=== PATIENT | male | born 1950 | race American Indian/Alaskan Native ===

== ENCOUNTER 2017-10-22 06:38 | Day surgery (SDC) | payer OTHER, MEDICAID ==
[~2017-10-22 06:38] MED LIST: Dextrose 5%-0.45% NaCl 1,000 ML IV SCH; Midazolam 1 MG/ML 2 ML SDV ONE; Sodium Chloride 0.9% 10 ML Syringe FLUSH PRN; fentaNYL 100 MCG/2 ML SDV ONE
[2017-10-22] MEDS ORDERED: fentaNYL 100 MCG/2 ML SDV IV ONE ×3 (06:39→07:19)
[2017-10-22] MEDS ORDERED: Midazolam 1 MG/ML 2 ML SDV IV ONE ×3 (06:39→07:21)
--- NOTE | 2017-10-22 10:25 | OR ---
DATE: 10/22/2017 PROCEDURE: Esophagoscopy, NBI, multiple pinch biopsies, and brush biopsy for cytology. INSTRUMENT USED: GIF-Q180 Olympus video panendoscope. PREMEDICATIONS: No oral topical anesthesia used. Fentanyl 100 mcg intravenous, Versed 1.5 mg intravenous. The procedure was done under pulse oximetry, BP recording, and pencil inspector. INDICATION: The patient with progressive dysphagia, iron-deficiency anemia, as well as weight loss. Esophagogastroduodenoscopy has been done for evidence of any esophageal stricture, malignancy also under consideration, esophageal dilatations if feasible. Endoscopic hemostasis therapy if needed. DESCRIPTION OF PROCEDURE: The scope was passed with ease. There was a tight stricture noted in the upper esophagus preventing further advancement of the instrument. Significant scar tissue was noted along with some prominent folds. NBI views were obtained, photographs were taken, numerous pinch biopsies were obtained and sent for histopathology. [place] biopsy were also obtained and sent for cytology. No esophageal ulcers identified. No esophageal varices. There was some amount of retained food material around the area. No bleeding was noted from any of the visualized areas at the completion of examination. IMPRESSION: Upper esophageal stricture. The patient tolerated the procedure well. [facility] /[id number]
--- NOTE | 2017-10-22 10:58 | LETTER ---
10/22/2017 STEPHANY Troy [facility] [address] [place] [id number] RE: [place] BARTH : 1950 Dear Ms. Horton: Mr. [place] Barth had esophagoscopy done today and he tolerated the procedure well. I herewith send a copy of the endoscopy note and photographs for your review. Thank you, Sincerely, MOD /[id number]
== END 2017-10-22 09:37 | disposition home or self-care (01) ==
LOC: DL.ENDO 06:38
PROVIDERS: ATTEND Internal Medicine Gastroenterology
DX: K20.9 Esophagitis, unspecified (principal); D50.9 Iron deficiency anemia, unspecified; I10 Essential (primary) hypertension; R63.4 Abnormal weight loss; F17.210 Nicotine dependence, cigarettes, uncomplicated; F10.20 Alcohol dependence, uncomplicated
CPT/HCPCS: 43239; J2250; J3010; J7042; 88104; 88305; 88312

== ENCOUNTER 2018-01-01 15:36 | Observation (INO) | payer OTHER, MEDICAID ==
[2018-01-01] MEDS ORDERED: Sodium Chloride 0.9% 10 ML Syringe FLUSH PRN (16:26)
--- NOTE | 2018-01-01 16:33 | EDM.PDOC ---
ED HPI GENERAL MEDICAL PROBLEM - General Chief Complaint: Gastrointestinal Problem Stated Complaint: IN BY AMBULANCE Time Seen by Provider: 01/01/18 16:15 Source of Information: Reports: Patient, EMS, EMS Notes Reviewed, Family, RN, RN Notes Reviewed History Limitations: Reports: No Limitations - History of Present Illness INITIAL COMMENTS - FREE TEXT/NARRATIVE: Pt presents to the ER per [facility] with c/o black stools. He states that he has a narrowed esophagus. He has recently had an EGD, and was told that he had a yeast infection in his throat. He just recently finished medications prescribed to him for that. He states he has had diarrhea for quite some time. He has been unable to eat much for solid food for quite some time. He began drinking ensure , but he states the ensure made the diarrhea worse, so he quit. He states he drinks 12 beers per day. He states 5-6 BM per day. Family in the room states he used to eat scrambled eggs frequently, but has been unable to eat that as well. Patient states a history of cirrhosis, HTN, and anemia. Patient denies N/V, chest pains, fever. He states he has a sore throat, chills, and SOB often. Onset: Gradual - Related Data Allergies Allergy/AdvReac Type Severity Reaction Status Date / Time No Known Allergies Allergy Verified 01/01/18 15:44 Home Meds: Home Meds . [No Known Home Meds] 10/21/17 [History] Past Medical History HEENT History: Reports: Impaired Vision Cardiovascular History: Reports: None Respiratory History: Reports: None Gastrointestinal History: Reports: Colon Polyp Genitourinary History: Reports: None Musculoskeletal History: Reports: None Neurological History: Reports: None Psychiatric History: Reports: Addiction Endocrine/Metabolic History: Reports: None Hematologic History: Reports: None Immunologic History: Reports: None Oncologic (Cancer) History: Reports: None Dermatologic History: Reports: None - Infectious Disease History Infectious Disease History: Reports: Measles - Past Surgical History Head Surgeries/Procedures: Reports: None HEENT Surgical History: Reports: None Cardiovascular Surgical History: Reports: None GI Surgical History: Reports: Colonoscopy, EGD Musculoskeletal Surgical History: Reports: None Social & Family History - Family History Family Medical History: Noncontributory - Tobacco Use Smoking Status *Q: Current Every Day Smoker Years of Tobacco use: 50 Packs/Tins Daily: 1 Second Hand Smoke Exposure: No - Caffeine Use Caffeine Use: Reports: None Caffeine Use Comment: 3 cups daily - Alcohol Use Days Per Week of Alcohol Use: 7 Number of Drinks Per Day: 12 Total Drinks Per Week: 84 - Recreational Drug Use Recreational Drug Use: No ED ROS GENERAL - Review of Systems Review Of Systems: ROS reveals no pertinent complaints other than HPI. ED EXAM, GI/ABD - Physical Exam Exam: See Below Exam Limited By: No Limitations General Appearance: Alert, Thin, Cachetic Eyes: Bilateral: Normal Appearance, EOMI Ears: Normal External Exam, Hearing Grossly Normal Nose: Normal Inspection Throat/Mouth: Normal Inspection, Normal Voice, No Airway Compromise Head: Atraumatic, Normocephalic Neck: Normal Inspection, Limited Range of Motion Respiratory/Chest: No Respiratory Distress, No Accessory Muscle Use, Chest Non- Tender, Decreased Breath Sounds Cardiovascular: Normal Peripheral Pulses, Regular Rate, Rhythm, No Edema, No Gallop, No JVD, No Murmur, No Rub GI/Abdominal Exam: No Organomegaly, No Distention, Guarding, Tender, Abnormal Bowel Sounds (hypoactive) (Male) Exam: Deferred Rectal (Males) Exam: Heme + Stool, Other (Rectal excoriation) Back Exam: Normal Inspection, Decreased Range of Motion Extremities: Normal Inspection, Normal Range of Motion, Non-Tender, No Pedal Edema, Normal Capillary Refill Neurological: Alert, Oriented, CN II-XII Intact, Normal Cognition, Normal Reflexes, No Motor/Sensory Deficits, Abnormal Gait (weak) Psychiatric: Normal Affect, Normal Mood Skin Exam: Warm, Dry, Intact, Normal Color, No Rash Lymphatic: No Adenopathy EKG INTERPRETATION EKG Date: 01/01/18 Time: 16:34 Rhythm: NSR Rate (Beats/Min): 80 (PAC's) [place]: Normal P-Wave: Present QRS: Normal ST-T: Normal QT: Normal Comparison: NA - No Prior EKG Course - Vital Signs Last Recorded V/S: Last Vital Signs Temp 98.4 F 01/01/18 15:45 Pulse 95 01/01/18 15:45 Resp 18 01/01/18 15:45 BP 159/82 H 01/01/18 15:45 Pulse Ox - Orders/Labs/Meds Orders: Active Orders 24 hr Category Date Time Status EKG Documentation Completion [RC] STAT Care 01/01/18 16:26 Active Peripheral IV Care [RC] . DIRECTED Care 01/01/18 16:27 Active C DIFFICILE TOXIN BY PCR [MREF] Stat Lab 01/01/18 16:26 Ordered DRUG SCREEN URINE BIORAD [URCHEM] Stat Lab 01/01/18 16:05 Ordered UA W/MICROSCOPIC [URIN] Stat Lab 01/01/18 16:05 Ordered Sodium Chloride 0.9% [Normal Saline] 1,000 ml Med 01/01/18 17:55 Active IV .BOLUS Sodium Chloride 0.9% [Saline Flush] Med 01/01/18 16:26 Active 10 ml FLUSH ASDIRECTED PRN Peripheral IV Insertion Adult [OM.PC] Stat Oth 01/01/18 16:26 Ordered Medication Orders Sodium Chloride (Normal Saline) 1,000 mls @ 200 mls/hr IV .BOLUS ONE Stop: 01/01/18 22:54 Last Admin: 01/01/18 18:08 Dose: 200 mls/hr Sodium Chloride (Saline Flush) 10 ml FLUSH ASDIRECTED PRN PRN Reason: Keep Vein Open Last Admin: 01/01/18 17:48 Dose: 10 ml Labs: Laboratory Tests 01/01/18 01/01/18 01/01/18 Range/Units 15:43 15:43 15:43 WBC 7.6 (5.0-10.0) 10^3/uL RBC 5.02 (4.6-6.2) 10^6/uL Hgb 10.9 L (14.0-18.0) g/dL Hct 33.7 L (40.0-54.0) % MCV 67.1 L (80-100) fL MCH 21.7 L (27.0-34.0) pg MCHC 32.3 L (33.0-35.0) g/dL Plt Count 193 (150-450) 10^3/uL Neut % (Auto) 73.0 (42.2-75.2) % Lymph % (Auto) 14.7 L (20.5-50.1) % [place] % (Auto) 11.5 H (2-8) % Eos % (Auto) 0.3 L (1.0-3.0) % Baso % (Auto) 0.5 (0.0-1.0) % PT 10.3 (9.0-12.0) SEC INR 1.0 (0.9-1.2) Sodium 126 L (135-145) mmol/L Potassium 3.7 (3.6-5.0) mmol/L Chloride 94 L (101-111) mmol/L Carbon Dioxide 21.0 (21.0-31.0) mmol/L Anion Gap 14.7 BUN 6 L (7-18) mg/dL Creatinine 0.7 (0.6-1.3) mg/dL Est Cr Clr Drug Dosing 71.28 mL/min Estimated GFR (MDRD) > 60 BUN/Creatinine Ratio 8.57 Glucose 116 H (74-105) mg/dL Calcium 8.7 (8.4-10.2) mg/dl Magnesium 1.9 (1.8-2.5) mg/dL Total Bilirubin 0.6 (0.2-1.0) mg/dL AST 56 H (10-42) IU/L ALT 31 (10-60) IU/L Alkaline Phosphatase 105 (42-121) IU/L Total Protein 6.9 (6.7-8.2) g/dl Albumin 3.1 L (3.2-5.5) g/dl Globulin 3.8 Albumin/Globulin Ratio 0.82 Amylase 30 (28-100) U/L Lipase 44 (22-51) U/L Urine Color (YELLOW) Urine Appearance (CLEAR) Urine pH (5.0-9.0) Ur Specific [place] (1.005-1.030) Urine Protein (NEGATIVE) Urine Glucose (UA) (NEGATIVE) Urine Ketones (NEGATIVE) Urine Occult Blood (NEGATIVE) Urine Nitrite (NEGATIVE) Urine Bilirubin (NEGATIVE) Urine Urobilinogen (0.2-1.0) mg/dL Ur Leukocyte Esterase (NEGATIVE) Urine RBC /HPF Urine WBC (0-5/HPF) /HPF Ur Epithelial Cells /HPF Urine Bacteria (0-FEW/HPF) /HPF Urine Mucus /LPF Urine Opiates Screen (NEGATIVE) Ur Oxycodone Screen (NEGATIVE) Urine Methadone Screen (NEGATIVE) Ur Barbiturates Screen (NEGATIVE) U Tricyclic Antidepress (NEGATIVE) Ur Phencyclidine Scrn (NEGATIVE) Ur Amphetamine Screen (NEGATIVE) U Methamphetamines Scrn (NEGATIVE) Urine MDMA Screen (NEGATIVE) U Benzodiazepines Scrn (NEGATIVE) Urine Cocaine Screen (NEGATIVE) U Marijuana (THC) Screen (NEGATIVE) Ethyl Alcohol 121 mg/dL 01/01/18 01/01/18 Range/Units 16:05 16:05 WBC (5.0-10.0) 10^3/uL RBC (4.6-6.2) 10^6/uL Hgb (14.0-18.0) g/dL Hct (40.0-54.0) % MCV (80-100) fL MCH (27.0-34.0) pg MCHC (33.0-35.0) g/dL Plt Count (150-450) 10^3/uL Neut % (Auto) (42.2-75.2) % Lymph % (Auto) (20.5-50.1) % [place] % (Auto) (2-8) % Eos % (Auto) (1.0-3.0) % Baso % (Auto) (0.0-1.0) % PT (9.0-12.0) SEC INR (0.9-1.2) Sodium (135-145) mmol/L Potassium (3.6-5.0) mmol/L Chloride (101-111) mmol/L Carbon Dioxide (21.0-31.0) mmol/L Anion Gap BUN (7-18) mg/dL Creatinine (0.6-1.3) mg/dL Est Cr Clr Drug Dosing mL/min Estimated GFR (MDRD) BUN/Creatinine Ratio Glucose (74-105) mg/dL Calcium (8.4-10.2) mg/dl Magnesium (1.8-2.5) mg/dL Total Bilirubin (0.2-1.0) mg/dL AST (10-42) IU/L ALT (10-60) IU/L Alkaline Phosphatase (42-121) IU/L Total Protein (6.7-8.2) g/dl Albumin (3.2-5.5) g/dl Globulin Albumin/Globulin Ratio Amylase (28-100) U/L Lipase (22-51) U/L Urine Color Yellow (YELLOW) Urine Appearance Slightly cloudy (CLEAR) Urine pH 5.5 (5.0-9.0) Ur Specific [place] 1.015 (1.005-1.030) Urine Protein Negative (NEGATIVE) Urine Glucose (UA) Negative (NEGATIVE) Urine Ketones Trace H (NEGATIVE) Urine Occult Blood Small H (NEGATIVE) Urine Nitrite Negative (NEGATIVE) Urine Bilirubin Negative (NEGATIVE) Urine Urobilinogen 0.2 (0.2-1.0) mg/dL Ur Leukocyte Esterase Trace H (NEGATIVE) Urine RBC 5-10 H /HPF Urine WBC 5-10 H (0-5/HPF) /HPF Ur Epithelial Cells Few /HPF Urine Bacteria Rare (0-FEW/HPF) /HPF Urine Mucus Rare /LPF Urine Opiates Screen Negative (NEGATIVE) Ur Oxycodone Screen Negative (NEGATIVE) Urine Methadone Screen Negative (NEGATIVE) Ur Barbiturates Screen Negative (NEGATIVE) U Tricyclic Antidepress Negative (NEGATIVE) Ur Phencyclidine Scrn Negative (NEGATIVE) Ur Amphetamine Screen Negative (NEGATIVE) U Methamphetamines Scrn Negative (NEGATIVE) Urine MDMA Screen Negative (NEGATIVE) U Benzodiazepines Scrn Negative (NEGATIVE) Urine Cocaine Screen Negative (NEGATIVE) U Marijuana (THC) Screen Negative (NEGATIVE) Ethyl Alcohol mg/dL Meds: Medications Generic Name Dose Route Start Last Admin Trade Name Freq PRN Reason Stop Dose Admin Sodium Chloride 1,000 mls @ 200 mls/hr 01/01/18 17:55 01/01/18 18:08 Normal Saline IV 01/01/18 22:54 200 mls/hr .BOLUS ONE Administration Sodium Chloride 10 ml 01/01/18 16:26 01/01/18 17:48 Saline Flush FLUSH 10 ml ASDIRECTED PRN Administration Keep Vein Open Departure - Departure Time of Disposition: 18:46 Disposition: Refer to Observation Condition: Poor Clinical Impression: Diarrhea, Alcoholism, Esophageal stricture, Guaiac positive stools - Discharge Information Forms: ED Department Discharge - My Orders Last 24 Hours: My Active Orders 01/01/18 16:05 DRUG SCREEN URINE BIORAD [URCHEM] Stat UA W/MICROSCOPIC [URIN] Stat 01/01/18 16:26 EKG Documentation Completion [RC] STAT C DIFFICILE TOXIN BY PCR [MREF] Stat Sodium Chloride 0.9% [Saline Flush] 10 ml FLUSH ASDIRECTED PRN Peripheral IV Insertion Adult [OM.PC] Stat 01/01/18 16:27 Peripheral IV Care [RC] . DIRECTED 01/01/18 17:55 Sodium Chloride 0.9% [Normal Saline] 1,000 ml IV .BOLUS - Assessment/Plan Last 24 Hours: My Active Orders 01/01/18 16:05 DRUG SCREEN URINE BIORAD [URCHEM] Stat UA W/MICROSCOPIC [URIN] Stat 01/01/18 16:26 EKG Documentation Completion [RC] STAT C DIFFICILE TOXIN BY PCR [MREF] Stat Sodium Chloride 0.9% [Saline Flush] 10 ml FLUSH ASDIRECTED PRN Peripheral IV Insertion Adult [OM.PC] Stat 01/01/18 16:27 Peripheral IV Care [RC] . DIRECTED 01/01/18 17:55 Sodium Chloride 0.9% [Normal Saline] 1,000 ml IV .BOLUS
[2018-01-01 16:50] LABS: CHLORIDE,CL 94 mmol/L (101-111); SODIUM,NA 126 mmol/L (135-145)
[2018-01-01] MEDS ORDERED: Sodium Chloride 0.9% 1,000 ML IV ONE (17:55)
--- NOTE | 2018-01-01 18:58 | PCM.HP ---
H&P History of Present Illness - General Date of Service: 01/01/18 Source of Information: Patient, Family History Limitations: Reports: No Limitations - History of Present Illness Initial Comments - Free Text/Narative: 67-year-old male with the past medical history of cirrhosis, esophageal stricture, fungal esophagitis, chronic diarrhea, alcoholism, impaired vision, colon polyps, presented to the emergency room by his daughter for having multiple issues. Daughter said he was supposed to see his primary care provider today for follow-up but he did not show up and patient has been missing his appointments recently so she brought him to the emergency room. Patient stated that he has been having sore throat from the yeast infection but complete his anti-fungus treatment. He had recent EGD showing upper esophageal stricture. He admitted having diarrhea for months. He said recently he has been black. He denies recent use of antibiotics. He admitted to having occasional shortness of breath which could be from anxiety. He still drinks about 12 pack beer a day. Patient has not been having good food intake days. His last alcohol consumption was at 3 PM today. Patient denies fever, chills, nausea, vomiting, headache, change in vision, chest pain, cough, abdominal pain, urinary symptoms, lower extremities edema, unilateral weakness/numbness/tingling, any other symptoms or concern. Hemoccult in the emergency room was positive. Laboratory data reported WBC 7.6. Hemoglobin 10.9. Platelet 193. INR 1.0. Sodium 126. Creatinine 0.7. AST 56. ALP 31. Alkaline phosphatase because 105. Albumin 3.1. Urine drug screen is negative. Alcohol level 121. ER provider was planning to transfer patient to [facility] in [place]. They don't have data available today and they will accept him in the morning. Patient wants to go to [facility] where he had his GI specialist there and declined going somewhere else. - Related Data Allergies/Adverse Reactions: Allergies Allergy/AdvReac Type Severity Reaction Status Date / Time No Known Allergies Allergy Verified 01/01/18 15:44 Home Medications: Home Meds . [No Known Home Meds] 10/21/17 [History] Past Medical History HEENT History: Reports: Impaired Vision Cardiovascular History: Reports: None Respiratory History: Reports: None Gastrointestinal History: Reports: Colon Polyp Genitourinary History: Reports: None Musculoskeletal History: Reports: None Neurological History: Reports: None Psychiatric History: Reports: Addiction Endocrine/Metabolic History: Reports: None Hematologic History: Reports: None Immunologic History: Reports: None Oncologic (Cancer) History: Reports: None Dermatologic History: Reports: None - Infectious Disease History Infectious Disease History: Reports: Measles - Past Surgical History Head Surgeries/Procedures: Reports: None HEENT Surgical History: Reports: None Cardiovascular Surgical History: Reports: None GI Surgical History: Reports: Colonoscopy, EGD Musculoskeletal Surgical History: Reports: None Social & Family History - Family History Family Medical History: Noncontributory - Tobacco Use Smoking Status *Q: Current Every Day Smoker Years of Tobacco use: 50 Packs/Tins Daily: 1 Second Hand Smoke Exposure: No - Caffeine Use Caffeine Use: Reports: None Caffeine Use Comment: 3 cups daily - Alcohol Use Days Per Week of Alcohol Use: 7 Number of Drinks Per Day: 12 Total Drinks Per Week: 84 - Recreational Drug Use Recreational Drug Use: No H&P Review of Systems - Review of Systems: Review Of Systems: ROS reveals no pertinent complaints other than HPI. Exam - Exam Exam: See Below - Vital Signs Vital Signs: Last Vital Signs Temp 36.9 C 01/01/18 15:45 Pulse 95 01/01/18 15:45 Resp 18 01/01/18 15:45 BP 159/82 H 01/01/18 15:45 Pulse Ox Weight: 49.895 kg - Exam General: Alert, Oriented, Cooperative, Other (He looks frail and chronically ill ). No: Moderate Distress, Severe Distress, Sedated, Lethargic, Obtunded HEENT: Conjunctiva Clear, EACs Clear, EOMI, Hearing Intact, Mucosa Moist & [place] , Nares Patent, Normal Nasal Septum, Posterior Pharynx Clear, Pupils Equal, Pupils Reactive, Other (Poor oral hygiene and multiple dental caries) Neck: Supple, Trachea Midline, +2 Carotid Pulse wo Bruit Lungs: Clear to Auscultation, Normal Respiratory Effort Cardiovascular: Regular Rate, Regular Rhythm GI/Abdominal Exam: Normal Bowel Sounds, Soft, Non-Tender, No Organomegaly, No Distention, No Abnormal Bruit, No Mass (Male) Exam: Deferred Rectal (Males) Exam: Deferred Back Exam: Normal Inspection, Full Range of Motion. No: CVA Tenderness (L), CVA Tenderness (R) Extremities: Normal Inspection, Normal Range of Motion, Non-Tender, No Pedal Edema, Normal Capillary Refill Skin: Warm, Dry, Intact Neurological: Cranial Nerves Intact, Strength Equal Bilateral, Normal Speech Neuro Extensive - Mental Status: Alert, Oriented x3, Normal Mood/Affect Neuro Extensive - Motor, Sensory, Reflexes: CN II-XII Intact Psychiatric: Alert, Normal Affect, Normal Mood. No: Anxious, Depressed, Agitated, Suicidal Ideation, Homicidal Ideation, Hallucinations, Withdrawal Symptoms - Patient Data Lab Results Last 24 hrs: Laboratory Results - last 24 hr 01/01/18 01/01/18 01/01/18 Range/Units 15:43 15:43 15:43 WBC 7.6 (5.0-10.0) 10^3/uL RBC 5.02 (4.6-6.2) 10^6/uL Hgb 10.9 L (14.0-18.0) g/dL Hct 33.7 L (40.0-54.0) % MCV 67.1 L (80-100) fL MCH 21.7 L (27.0-34.0) pg MCHC 32.3 L (33.0-35.0) g/dL Plt Count 193 (150-450) 10^3/uL Neut % (Auto) 73.0 (42.2-75.2) % Lymph % (Auto) 14.7 L (20.5-50.1) % Rains % (Auto) 11.5 H (2-8) % Eos % (Auto) 0.3 L (1.0-3.0) % Baso % (Auto) 0.5 (0.0-1.0) % PT 10.3 (9.0-12.0) SEC INR 1.0 (0.9-1.2) Sodium 126 L (135-145) mmol/L Potassium 3.7 (3.6-5.0) mmol/L Chloride 94 L (101-111) mmol/L Carbon Dioxide 21.0 (21.0-31.0) mmol/L Anion Gap 14.7 BUN 6 L (7-18) mg/dL Creatinine 0.7 (0.6-1.3) mg/dL Est Cr Clr Drug Dosing 71.28 mL/min Estimated GFR (MDRD) > 60 BUN/Creatinine Ratio 8.57 Glucose 116 H (74-105) mg/dL Calcium 8.7 (8.4-10.2) mg/dl Magnesium 1.9 (1.8-2.5) mg/dL Total Bilirubin 0.6 (0.2-1.0) mg/dL AST 56 H (10-42) IU/L ALT 31 (10-60) IU/L Alkaline Phosphatase 105 (42-121) IU/L Total Protein 6.9 (6.7-8.2) g/dl Albumin 3.1 L (3.2-5.5) g/dl Globulin 3.8 Albumin/Globulin Ratio 0.82 Amylase 30 (28-100) U/L Lipase 44 (22-51) U/L Urine Color (YELLOW) Urine Appearance (CLEAR) Urine pH (5.0-9.0) Ur Specific [place] (1.005-1.030) Urine Protein (NEGATIVE) Urine Glucose (UA) (NEGATIVE) Urine Ketones (NEGATIVE) Urine Occult Blood (NEGATIVE) Urine Nitrite (NEGATIVE) Urine Bilirubin (NEGATIVE) Urine Urobilinogen (0.2-1.0) mg/dL Ur Leukocyte Esterase (NEGATIVE) Urine RBC /HPF Urine WBC (0-5/HPF) /HPF Ur Epithelial Cells /HPF Urine Bacteria (0-FEW/HPF) /HPF Urine Mucus /LPF Urine Opiates Screen (NEGATIVE) Ur Oxycodone Screen (NEGATIVE) Urine Methadone Screen (NEGATIVE) Ur Barbiturates Screen (NEGATIVE) U Tricyclic Antidepress (NEGATIVE) Ur Phencyclidine Scrn (NEGATIVE) Ur Amphetamine Screen (NEGATIVE) U Methamphetamines Scrn (NEGATIVE) Urine MDMA Screen (NEGATIVE) U Benzodiazepines Scrn (NEGATIVE) Urine Cocaine Screen (NEGATIVE) U Marijuana (THC) Screen (NEGATIVE) Ethyl Alcohol 121 mg/dL 01/01/18 01/01/18 Range/Units 16:05 16:05 WBC (5.0-10.0) 10^3/uL RBC (4.6-6.2) 10^6/uL Hgb (14.0-18.0) g/dL Hct (40.0-54.0) % MCV (80-100) fL MCH (27.0-34.0) pg MCHC (33.0-35.0) g/dL Plt Count (150-450) 10^3/uL Neut % (Auto) (42.2-75.2) % Lymph % (Auto) (20.5-50.1) % Rains % (Auto) (2-8) % Eos % (Auto) (1.0-3.0) % Baso % (Auto) (0.0-1.0) % PT (9.0-12.0) SEC INR (0.9-1.2) Sodium (135-145) mmol/L Potassium (3.6-5.0) mmol/L Chloride (101-111) mmol/L Carbon Dioxide (21.0-31.0) mmol/L Anion Gap BUN (7-18) mg/dL Creatinine (0.6-1.3) mg/dL Est Cr Clr Drug Dosing mL/min Estimated GFR (MDRD) BUN/Creatinine Ratio Glucose (74-105) mg/dL Calcium (8.4-10.2) mg/dl Magnesium (1.8-2.5) mg/dL Total Bilirubin (0.2-1.0) mg/dL AST (10-42) IU/L ALT (10-60) IU/L Alkaline Phosphatase (42-121) IU/L Total Protein (6.7-8.2) g/dl Albumin (3.2-5.5) g/dl Globulin Albumin/Globulin Ratio Amylase (28-100) U/L Lipase (22-51) U/L Urine Color Yellow (YELLOW) Urine Appearance Slightly cloudy (CLEAR) Urine pH 5.5 (5.0-9.0) Ur Specific [place] 1.015 (1.005-1.030) Urine Protein Negative (NEGATIVE) Urine Glucose (UA) Negative (NEGATIVE) Urine Ketones Trace H (NEGATIVE) Urine Occult Blood Small H (NEGATIVE) Urine Nitrite Negative (NEGATIVE) Urine Bilirubin Negative (NEGATIVE) Urine Urobilinogen 0.2 (0.2-1.0) mg/dL Ur Leukocyte Esterase Trace H (NEGATIVE) Urine RBC 5-10 H /HPF Urine WBC 5-10 H (0-5/HPF) /HPF Ur Epithelial Cells Few /HPF Urine Bacteria Rare (0-FEW/HPF) /HPF Urine Mucus Rare /LPF Urine Opiates Screen Negative (NEGATIVE) Ur Oxycodone Screen Negative (NEGATIVE) Urine Methadone Screen Negative (NEGATIVE) Ur Barbiturates Screen Negative (NEGATIVE) U Tricyclic Antidepress Negative (NEGATIVE) Ur Phencyclidine Scrn Negative (NEGATIVE) Ur Amphetamine Screen Negative (NEGATIVE) U Methamphetamines Scrn Negative (NEGATIVE) Urine MDMA Screen Negative (NEGATIVE) U Benzodiazepines Scrn Negative (NEGATIVE) Urine Cocaine Screen Negative (NEGATIVE) U Marijuana (THC) Screen Negative (NEGATIVE) Ethyl Alcohol mg/dL Result Diagrams: 01/01/18 15:43 01/01/18 15:43 Gustavo Results Last 24 hrs: Microbiology 01/01/18 16:28 Stool Occult Blood (GUSTAVO) - Final Stool / Feces Problem List Initiated/Reviewed/Updated: Yes Orders Last 24hrs: Active Orders 24 hr Category Date Time Status EKG Documentation Completion [RC] STAT Care 01/01/18 16:26 Active Peripheral IV Care [RC] . DIRECTED Care 01/01/18 16:27 Active C DIFFICILE TOXIN BY PCR [MREF] Stat Lab 01/01/18 16:26 Ordered DRUG SCREEN URINE BIORAD [URCHEM] Stat Lab 01/01/18 16:05 Ordered UA W/MICROSCOPIC [URIN] Stat Lab 01/01/18 16:05 Ordered Sodium Chloride 0.9% [Normal Saline] 1,000 ml Med 01/01/18 17:55 Active IV .BOLUS Sodium Chloride 0.9% [Saline Flush] Med 01/01/18 16:26 Active 10 ml FLUSH ASDIRECTED PRN Peripheral IV Insertion Adult [OM.PC] Stat Oth 01/01/18 16:26 Ordered Medication Orders Sodium Chloride (Normal Saline) 1,000 mls @ 200 mls/hr IV .BOLUS ONE Stop: 01/01/18 22:54 Last Admin: 01/01/18 18:08 Dose: 200 mls/hr Sodium Chloride (Saline Flush) 10 ml FLUSH ASDIRECTED PRN PRN Reason: Keep Vein Open Last Admin: 01/01/18 17:48 Dose: 10 ml Assessment/Plan Comment:: 67-year-old male with the past medical history of cirrhosis, esophageal stricture, fungal esophagitis, chronic diarrhea, alcoholism, impaired vision, colon polyps, presented to the emergency room by his daughter for having multiple issues. Came with multiple complaints, poor oral fluid intake, weight loss, alcoholism, oral pain. Hemoccult in the emergency room was positive. Laboratory data reported WBC 7.6. Hemoglobin 10.9. Platelet 193. INR 1.0. Sodium 126. Creatinine 0.7. AST 56. ALP 31. Alkaline phosphatase because 105. Albumin 3.1. Urine drug screen is negative. Alcohol level 121. ER provider was planning to transfer patient to [facility] in [place]. They don't have data available today and they will accept him in the morning. Patient wants to go to [facility] where he had his GI specialist there and declined going somewhere else. I discussed case with the doctor William over the phone who kindly agreed to resume care after me living at 7 PM today and arrange for transfer tomorrow morning #GI bleed Hemoglobin is stable. Recent EGD did not report esophageal varices Gentle IV fluid infusion Protonix 40 mg IV twice a day #Diarrhea C. difficile and stool culture and ova and parasites ordered #Hyponatremia Will do gentle IV fluid infusion of normal saline #Alcoholism Patient was advised to quit using alcohol and seek counseling [facility] protocol #Cirrhosis according to patient and daughter, most like from alcoholism LFTs and INR are normal Needs GI follow-up #charge nurse was informed to obtain list of home medications SCDs for DVT prophylaxis CODE STATUS: Full code
[2018-01-01] MEDS ORDERED: LORazepam 0.5 MG Tab PO PRN (19:08)
[2018-01-01] MEDS ORDERED: Ondansetron 4 MG/2 ML SDV IVPUSH PRN (19:13)
[2018-01-01] MEDS ORDERED: Albuterol/Ipratropium 3.0-0.5 MG/3 ML Neb Soln NEB PRN (19:13)
[2018-01-01] MEDS ORDERED: Morphine 2 MG/ML Syringe IVPUSH PRN (19:13)
[2018-01-01] MEDS ORDERED: Sodium Chloride 0.9% 1,000 ML IV SCH (19:15)
[2018-01-01] MEDS: Pantoprazole 40 MG Vial IVPUSH SCH (20:03)
[2018-01-01] MEDS: Nicotine 21 MG/24 Hr Patch TRDERM SCH (21:58)
[2018-01-02 07:10] LABS: CHLORIDE,CL 102 mmol/L (101-111); SODIUM,NA 133 mmol/L (135-145)
[2018-01-02] MEDS ORDERED: Multivitamins,Therapeutic Tab PO SCH (08:00)
[2018-01-02] MEDS ORDERED: Dextrose 5%-0.9% NaCl 1,000 ML IV SCH (08:15)
[2018-01-02] MEDS: Nicotine 21 MG/24 Hr Patch TRDERM SCH (08:33)
[2018-01-02] MEDS: Pantoprazole 40 MG Vial IVPUSH SCH (08:33)
[2018-01-02] MEDS: Nystatin Susp 100,000 Unit/ML 5 ML UD Cup PO SCH ×2 (08:33→13:03)
[2018-01-02] MEDS ORDERED: Folic Acid 1 MG Tab PO SCH (09:00)
[2018-01-02] MEDS ORDERED: Remove Patch*NICOTINE PATCH TRDERM SCH (09:00)
[2018-01-02] MEDS ORDERED: Thiamine 100 MG Tab PO SCH (09:00)
--- NOTE | 2018-01-02 14:30 | PCM.DCSUM1 ---
Discharge Summary - Hospital Course Free Text/Narrative:: h/o alcohol use, liver cirrhosis presented with weight loss, inability to swallow. Dark black stool noted. HAs been drinking 12 can beers daily. admitted with GI bleed - treated with Protonix mild acute blood loss anemia - hgb drop mostly due to hydration no acute alcohol withdrawal since admission alcohol abuse - supplemented thiamine, folate, mvi dysphagia - last EGD 10/2017 - showed stricture - could not pass scope - biopsy showed candidiasis - tx. nystatin - will likely need esophageal dilatation - Discharge Data Discharge Date: 01/02/18 Discharge Disposition: DC/Tfer to Acute Hospital 02 Condition: Fair - Discharge Plan Home Medications: Home Meds Folic Acid 1 mg PO DAILY tablet 01/02/18 [Rx] LORazepam [Ativan] 0 mg PO Q4H PRN tablet 01/02/18 [Rx] Multivitamins,Therapeutic [Thera] 1 each PO WITHBREAKFAST tablet 01/02/18 [Rx] Nicotine [Habitrol] 21 mg TRDERM DAILY patch 01/02/18 [Rx] Nystatin [Mycostatin] 5 ml PO QID cup 01/02/18 [Rx] Pantoprazole [ProTONIX IV] 40 mg IVPUSH Q12H vial 01/02/18 [Rx] Thiamine [Vitamin B-1] 100 mg PO DAILY tablet 01/02/18 [Rx] - General Info Date of Service: 01/02/18 Functional Status: Reports: Pain Controlled - Review of Systems General: Denies: Fever Pulmonary: Denies: Shortness of Breath Cardiovascular: Denies: Chest Pain Gastrointestinal: Denies: Abdominal Pain - Patient Data Vitals - Most Recent: Last Vital Signs Temp 37.0 C 01/02/18 09:03 Pulse 94 01/02/18 09:03 Resp 18 01/02/18 09:03 BP 138/73 01/02/18 09:03 Pulse Ox 100 01/02/18 09:03 Weight - Most Recent: 45.983 kg I&O - Last 24 hours: Intake & Output 01/01/18 01/02/18 01/02/18 22:59 06:59 14:59 Intake Total 300 1046 Output Total 300 200 Balance 300 746 -200 Lab Results - Last 24 hrs: Laboratory Results - last 24 hr 01/01/18 01/01/18 01/01/18 Range/Units 15:43 15:43 15:43 WBC 7.6 (5.0-10.0) 10^3/uL RBC 5.02 (4.6-6.2) 10^6/uL Hgb 10.9 L (14.0-18.0) g/dL Hct 33.7 L (40.0-54.0) % MCV 67.1 L (80-100) fL MCH 21.7 L (27.0-34.0) pg MCHC 32.3 L (33.0-35.0) g/dL Plt Count 193 (150-450) 10^3/uL Neut % (Auto) 73.0 (42.2-75.2) % Lymph % (Auto) 14.7 L (20.5-50.1) % Tucker % (Auto) 11.5 H (2-8) % Eos % (Auto) 0.3 L (1.0-3.0) % Baso % (Auto) 0.5 (0.0-1.0) % PT 10.3 (9.0-12.0) SEC INR 1.0 (0.9-1.2) Sodium 126 L (135-145) mmol/L Potassium 3.7 (3.6-5.0) mmol/L Chloride 94 L (101-111) mmol/L Carbon Dioxide 21.0 (21.0-31.0) mmol/L Anion Gap 14.7 BUN 6 L (7-18) mg/dL Creatinine 0.7 (0.6-1.3) mg/dL Est Cr Clr Drug Dosing 71.28 mL/min Estimated GFR (MDRD) > 60 BUN/Creatinine Ratio 8.57 Glucose 116 H (74-105) mg/dL Calcium 8.7 (8.4-10.2) mg/dl Magnesium 1.9 (1.8-2.5) mg/dL Total Bilirubin 0.6 (0.2-1.0) mg/dL AST 56 H (10-42) IU/L ALT 31 (10-60) IU/L Alkaline Phosphatase 105 (42-121) IU/L Total Protein 6.9 (6.7-8.2) g/dl Albumin 3.1 L (3.2-5.5) g/dl Globulin 3.8 Albumin/Globulin Ratio 0.82 Amylase 30 (28-100) U/L Lipase 44 (22-51) U/L Urine Color (YELLOW) Urine Appearance (CLEAR) Urine pH (5.0-9.0) Ur Specific [place] (1.005-1.030) Urine Protein (NEGATIVE) Urine Glucose (UA) (NEGATIVE) Urine Ketones (NEGATIVE) Urine Occult Blood (NEGATIVE) Urine Nitrite (NEGATIVE) Urine Bilirubin (NEGATIVE) Urine Urobilinogen (0.2-1.0) mg/dL Ur Leukocyte Esterase (NEGATIVE) Urine RBC /HPF Urine WBC (0-5/HPF) /HPF Ur Epithelial Cells /HPF Urine Bacteria (0-FEW/HPF) /HPF Urine Mucus /LPF Urine Opiates Screen (NEGATIVE) Ur Oxycodone Screen (NEGATIVE) Urine Methadone Screen (NEGATIVE) Ur Barbiturates Screen (NEGATIVE) U Tricyclic Antidepress (NEGATIVE) Ur Phencyclidine Scrn (NEGATIVE) Ur Amphetamine Screen (NEGATIVE) U Methamphetamines Scrn (NEGATIVE) Urine MDMA Screen (NEGATIVE) U Benzodiazepines Scrn (NEGATIVE) Urine Cocaine Screen (NEGATIVE) U Marijuana (THC) Screen (NEGATIVE) Ethyl Alcohol 121 mg/dL 01/01/18 01/01/18 01/02/18 Range/Units 16:05 16:05 06:05 WBC 5.6 (5.0-10.0) 10^3/uL RBC 4.43 L (4.6-6.2) 10^6/uL Hgb 9.5 L (14.0-18.0) g/dL Hct 30.4 L (40.0-54.0) % MCV 68.6 L (80-100) fL MCH 21.4 L (27.0-34.0) pg MCHC 31.3 L (33.0-35.0) g/dL Plt Count 224 (150-450) 10^3/uL Neut % (Auto) 62.4 (42.2-75.2) % Lymph % (Auto) 19.4 L (20.5-50.1) % Tucker % (Auto) 16.9 H (2-8) % Eos % (Auto) 0.4 L (1.0-3.0) % Baso % (Auto) 0.9 (0.0-1.0) % PT (9.0-12.0) SEC INR (0.9-1.2) Sodium (135-145) mmol/L Potassium (3.6-5.0) mmol/L Chloride (101-111) mmol/L Carbon Dioxide (21.0-31.0) mmol/L Anion Gap BUN (7-18) mg/dL Creatinine (0.6-1.3) mg/dL Est Cr Clr Drug Dosing mL/min Estimated GFR (MDRD) BUN/Creatinine Ratio Glucose (74-105) mg/dL Calcium (8.4-10.2) mg/dl Magnesium (1.8-2.5) mg/dL Total Bilirubin (0.2-1.0) mg/dL AST (10-42) IU/L ALT (10-60) IU/L Alkaline Phosphatase (42-121) IU/L Total Protein (6.7-8.2) g/dl Albumin (3.2-5.5) g/dl Globulin Albumin/Globulin Ratio Amylase (28-100) U/L Lipase (22-51) U/L Urine Color Yellow (YELLOW) Urine Appearance Slightly cloudy (CLEAR) Urine pH 5.5 (5.0-9.0) Ur Specific [place] 1.015 (1.005-1.030) Urine Protein Negative (NEGATIVE) Urine Glucose (UA) Negative (NEGATIVE) Urine Ketones Trace H (NEGATIVE) Urine Occult Blood Small H (NEGATIVE) Urine Nitrite Negative (NEGATIVE) Urine Bilirubin Negative (NEGATIVE) Urine Urobilinogen 0.2 (0.2-1.0) mg/dL Ur Leukocyte Esterase Trace H (NEGATIVE) Urine RBC 5-10 H /HPF Urine WBC 5-10 H (0-5/HPF) /HPF Ur Epithelial Cells Few /HPF Urine Bacteria Rare (0-FEW/HPF) /HPF Urine Mucus Rare /LPF Urine Opiates Screen Negative (NEGATIVE) Ur Oxycodone Screen Negative (NEGATIVE) Urine Methadone Screen Negative (NEGATIVE) Ur Barbiturates Screen Negative (NEGATIVE) U Tricyclic Antidepress Negative (NEGATIVE) Ur Phencyclidine Scrn Negative (NEGATIVE) Ur Amphetamine Screen Negative (NEGATIVE) U Methamphetamines Scrn Negative (NEGATIVE) Urine MDMA Screen Negative (NEGATIVE) U Benzodiazepines Scrn Negative (NEGATIVE) Urine Cocaine Screen Negative (NEGATIVE) U Marijuana (THC) Screen Negative (NEGATIVE) Ethyl Alcohol mg/dL 01/02/18 Range/Units 06:05 WBC (5.0-10.0) 10^3/uL RBC (4.6-6.2) 10^6/uL Hgb (14.0-18.0) g/dL Hct (40.0-54.0) % MCV (80-100) fL MCH (27.0-34.0) pg MCHC (33.0-35.0) g/dL Plt Count (150-450) 10^3/uL Neut % (Auto) (42.2-75.2) % Lymph % (Auto) (20.5-50.1) % Tucker % (Auto) (2-8) % Eos % (Auto) (1.0-3.0) % Baso % (Auto) (0.0-1.0) % PT (9.0-12.0) SEC INR (0.9-1.2) Sodium 133 L (135-145) mmol/L Potassium 3.8 (3.6-5.0) mmol/L Chloride 102 (101-111) mmol/L Carbon Dioxide 22.0 (21.0-31.0) mmol/L Anion Gap 12.8 BUN 6 L (7-18) mg/dL Creatinine 0.8 (0.6-1.3) mg/dL Est Cr Clr Drug Dosing 57.48 mL/min Estimated GFR (MDRD) > 60 BUN/Creatinine Ratio 7.50 Glucose 70 L (74-105) mg/dL Calcium 8.3 L (8.4-10.2) mg/dl Magnesium (1.8-2.5) mg/dL Total Bilirubin 1.1 H (0.2-1.0) mg/dL AST 34 (10-42) IU/L ALT 23 (10-60) IU/L Alkaline Phosphatase 84 (42-121) IU/L Total Protein 5.4 L (6.7-8.2) g/dl Albumin 2.4 L (3.2-5.5) g/dl Globulin 3.0 Albumin/Globulin Ratio 0.80 Amylase (28-100) U/L Lipase (22-51) U/L Urine Color (YELLOW) Urine Appearance (CLEAR) Urine pH (5.0-9.0) Ur Specific [place] (1.005-1.030) Urine Protein (NEGATIVE) Urine Glucose (UA) (NEGATIVE) Urine Ketones (NEGATIVE) Urine Occult Blood (NEGATIVE) Urine Nitrite (NEGATIVE) Urine Bilirubin (NEGATIVE) Urine Urobilinogen (0.2-1.0) mg/dL Ur Leukocyte Esterase (NEGATIVE) Urine RBC /HPF Urine WBC (0-5/HPF) /HPF Ur Epithelial Cells /HPF Urine Bacteria (0-FEW/HPF) /HPF Urine Mucus /LPF Urine Opiates Screen (NEGATIVE) Ur Oxycodone Screen (NEGATIVE) Urine Methadone Screen (NEGATIVE) Ur Barbiturates Screen (NEGATIVE) U Tricyclic Antidepress (NEGATIVE) Ur Phencyclidine Scrn (NEGATIVE) Ur Amphetamine Screen (NEGATIVE) U Methamphetamines Scrn (NEGATIVE) Urine MDMA Screen (NEGATIVE) U Benzodiazepines Scrn (NEGATIVE) Urine Cocaine Screen (NEGATIVE) U Marijuana (THC) Screen (NEGATIVE) Ethyl Alcohol mg/dL LETICIA Results - Last 24 hrs: Microbiology 01/01/18 16:28 Stool Occult Blood (LETICIA) - Final Stool / Feces Med Orders - Current: Current Medications Albuterol/Ipratropium (Duoneb 3.0-0.5 Mg/3 Ml) 3 ml NEB Q4H PRN PRN Reason: shortness of breath/wheezing Folic Acid (Folic Acid) 1 mg PO DAILY [facility] Last Admin: 01/02/18 08:33 Dose: 1 mg Dextrose/Sodium Chloride (Dextrose 5%-Normal Saline) 1,000 mls @ 75 mls/hr IV ASDIRECTED [facility] Last Admin: 01/02/18 08:37 Dose: 75 mls/hr Lorazepam (Ativan) 0 mg PO Q4H PRN; Protocol PRN Reason: Alcohol withdrawal Miscellaneous Information (Remove Patch) 1 ea TRDERM DAILY [facility] Last Admin: 01/02/18 08:33 Dose: 1 ea Morphine Sulfate (Morphine) 1 mg IVPUSH Q2H PRN PRN Reason: Pain (severe 7-10) Multivitamins (Thera) 1 each PO WITHBREAKFAST [facility] Last Admin: 01/02/18 08:33 Dose: 1 each Nicotine (Habitrol) 21 mg TRDERM DAILY [facility] Last Admin: 01/02/18 08:33 Dose: 21 mg Nystatin (Mycostatin) 5 ml PO QID [facility] Last Admin: 01/02/18 13:03 Dose: 5 ml Ondansetron HCl (Zofran) 4 mg IVPUSH Q6H PRN PRN Reason: Nausea/Vomiting Pantoprazole Sodium (Protonix Iv) 40 mg IVPUSH Q12H [facility] Last Admin: 01/02/18 08:33 Dose: 40 mg Sodium Chloride (Saline Flush) 10 ml FLUSH ASDIRECTED PRN PRN Reason: Keep Vein Open Last Admin: 01/01/18 17:48 Dose: 10 ml Thiamine HCl (Vitamin B-1) 100 mg PO DAILY [facility] Last Admin: 01/02/18 08:33 Dose: 100 mg Discontinued Medications Sodium Chloride (Normal Saline) 1,000 mls @ 200 mls/hr IV .BOLUS ONE Stop: 01/01/18 22:54 Last Infusion: 01/01/18 19:36 Dose: 100 mls/hr Sodium Chloride (Normal Saline) 1,000 mls @ 100 mls/hr IV ASDIRECTED [facility] Last Admin: 01/02/18 03:04 Dose: 100 mls/hr - Exam General: Reports: Alert, Oriented Neck: Reports: Supple Lungs: Reports: Clear to Auscultation, Normal Respiratory Effort GI/Abdominal Exam: Normal Bowel Sounds, Soft, Non-Tender Extremities: No Pedal Edema
--- NOTE | 2018-01-05 01:02 | EKG ---
01/01/2018 - EUNICE BARTH - TIME OF EK:34 p.m. EKG, per my reading, shows sinus rhythm with PACs, at the rate of 80s. [facility] /[id number]
== END 2018-01-02 15:50 ==
LOC: DL.ED 15:36 → UNDOADMOB 18:51 → DL.MS 18:51
PROVIDERS: ADMIT Family Medicine; ATTEND Family Medicine
DX: K92.2 Gastrointestinal hemorrhage, unspecified (principal); D62 Acute posthemorrhagic anemia; F10.10 Alcohol abuse, uncomplicated; R13.10 Dysphagia, unspecified; Z79.899 Other long term (current) drug therapy; F17.210 Nicotine dependence, cigarettes, uncomplicated
CPT/HCPCS: 36415; 80053; 80305; 81001; 82150; 82272; 83690; 83735; 85025; 85610; 87045; 87046; 87328; 87329; 87493; 87899; 93005; 93010; 99285; A9270; C9113; G0480; J7030; J7042; J7050; 96360; 99284

== ENCOUNTER 2019-01-19 05:37 | Day surgery (SDC) | payer OTHER, MEDICARE ==
[2019-01-19] MEDS ORDERED: Midazolam 1 MG/ML 2 ML SDV IV ONE ×5 (05:38→06:36)
[2019-01-19] MEDS ORDERED: fentaNYL 100 MCG/2 ML SDV IV ONE ×3 (05:38→06:30)
[2019-01-19] MEDS ORDERED: Midazolam 1 MG/ML 2 ML SDV ONE (06:16)
[2019-01-19] MEDS ORDERED: fentaNYL 100 MCG/2 ML SDV ONE (06:16)
[2019-01-19] MEDS ORDERED: Dextrose 5%-0.45% NaCl 1,000 ML IV SCH (06:30)
--- NOTE | 2019-01-19 13:41 | OR ---
DATE: 01/19/2019 PROCEDURE PERFORMED: Total colonoscopy and cold snare piecemeal snare polypectomy. INSTRUMENT USED: [id number] Olympus video colonoscope. PREMEDICATIONS: Fentanyl 100 mcg intravenous, Versed 3 mg intravenous. Nasal O2 cannula. The procedure was done under pulse oximetry, BP recording, and monitoring manager. INDICATION: Screening colonoscopic examination is done for detection of any polypoid lesions and removal, endoscopic hemostasis therapy if needed. DESCRIPTION OF PROCEDURE: Initial rectal exam was unremarkable. Rigid anoscopy was normal. The colonoscope was passed with ease. Few scattered diverticula were noted in the distal left colon. The scope was passed with ease to the ileocecal area, photographs were taken of the cecum, which showed superficial sessile benign- appearing polyp, cold snare piecemeal polypectomy was done, and the tissues were sent for histopathology, photographs were taken of polypectomy site. No stricture, no vascular ectasia. No large isolated ulcerations seen. No evidence of diffuse inflammatory bowel disease in the form of friability, contact bleeding, or ulcerations. No bleeding was noted from any of the visualized areas at the commencement of the examination. The bowel preparation was found to be adequate [place] scale 3. Probing of proximal sides of folds and flexures using adequate distention and clearing of the stool material, withdrawal of the scope was made, cecum to rectum time over 6 minutes. No bleeding was noted from any of the visualized areas at the completion of examination. IMPRESSION: 1. Diverticulosis. 2. Cecal polyp. The patient tolerated the procedure well. [facility] /[id number]
--- NOTE | 2019-01-20 09:20 | LETTER ---
01/19/2019 Gisele Colon, [address] [address] RE: [place] BARTH : 1950 Dear Ms. Colon: Mr. [place] Barth had colonoscopic examination done this morning and he tolerated the procedure well. I herewith send a copy of the endoscopy note and photographs for your review. Thank you. Sincerely, [facility] /[id number]
== END 2019-01-19 08:54 | disposition home or self-care (01) ==
LOC: DL.ENDO 05:37
PROVIDERS: ATTEND Internal Medicine Gastroenterology
DX: Z12.11 Encounter for screening for malignant neoplasm of colon (principal); D12.0 Benign neoplasm of cecum; K57.30 Diverticulosis of large intestine without perforation or abscess without bleeding; I12.9 Hypertensive chronic kidney disease with stage 1 through stage 4 chronic kidney disease, or unspecified chronic kidney disease; N18.2 Chronic kidney disease, stage 2 (mild); F17.210 Nicotine dependence, cigarettes, uncomplicated; Z79.899 Other long term (current) drug therapy
CPT/HCPCS: 45385; J7042; J2250; J3010

== ENCOUNTER 2019-05-08 01:56 | Emergency (ER) | payer MEDICARE ==
--- NOTE | 2019-05-08 02:23 | EDM.PDOC ---
ED HPI GENERAL MEDICAL PROBLEM - General Chief Complaint: Upper Extremity Injury/Pain Stated Complaint: AMBULANCE-FALL Time Seen by Provider: 05/08/19 02:17 Source of Information: Reports: Patient, Family History Limitations: Reports: Other (unable recall) - History of Present Illness INITIAL COMMENTS - FREE TEXT/NARRATIVE: son states heard noise and check on pt found lying on floor stating he is ok but saw blood on his arm and called EMS. pt states he is unable recall what happened but feels ok and doesn't know how he ended on the floor and doesn't know why he was there. BUT told RN that he had to go to bathroom and somehow fell. - Related Data Allergies Allergy/AdvReac Type Severity Reaction Status Date / Time No Known Allergies Allergy Verified 05/08/19 02:06 Home Meds: Home Meds . [No Known Home Meds] 05/08/19 [History] Past Medical History HEENT History: Reports: Impaired Vision Cardiovascular History: Reports: Hypertension Respiratory History: Reports: None Gastrointestinal History: Reports: Colon Polyp, GERD Genitourinary History: Reports: None Musculoskeletal History: Reports: None Neurological History: Reports: None Psychiatric History: Reports: Addiction Endocrine/Metabolic History: Reports: None Hematologic History: Reports: None Immunologic History: Reports: None Oncologic (Cancer) History: Reports: None Dermatologic History: Reports: None - Infectious Disease History Infectious Disease History: Reports: Chicken Pox, Measles - Past Surgical History Head Surgeries/Procedures: Reports: None HEENT Surgical History: Reports: None Cardiovascular Surgical History: Reports: None GI Surgical History: Reports: Colonoscopy, EGD Male Surgical History: Reports: None Musculoskeletal Surgical History: Reports: None Social & Family History - Family History Family Medical History: Noncontributory - Tobacco Use Smoking Status *Q: Current Every Day Smoker Years of Tobacco use: 51 Packs/Tins Daily: 0.5 Used Tobacco, but Quit: No Second Hand Smoke Exposure: Yes - Caffeine Use Caffeine Use: Reports: Coffee, Energy Drinks, Soda, Tea Caffeine Use Comment: 2 cups daily - Alcohol Use Days Per Week of Alcohol Use: 7 Number of Drinks Per Day: 0 Total Drinks Per Week: 0 Date of Last Drink: 05/08/19 Time of Last Drink: 00:05 - Recreational Drug Use Recreational Drug Use: No Review of Systems - Review of Systems Review Of Systems: ROS reveals no pertinent complaints other than HPI. ED EXAM, GENERAL - Physical Exam Exam: See Below Exam Limited By: No Limitations General Appearance: Alert, WD/WN, No Apparent Distress Eye Exam: Bilateral Eye: PERRL (pupils ER @ 4mm) Ears: Hearing Grossly Normal Throat/Mouth: Normal Voice, No Airway Compromise Head: Other (right zygoma 1/4" spfl abrasion.) Neck: Non-Tender, Full Range of Motion Respiratory/Chest: No Respiratory Distress Cardiovascular: Regular Rate, Rhythm GI/Abdominal: Soft, Non-Tender Extremities: Other (right arm 2" size skin tear with 1/2" open wound, normal ROM , NV wnl. ) Neurological: Alert, Normal Cognition, No Motor/Sensory Deficits Psychiatric: Flat Affect Skin Exam: Warm, Dry, Normal Color Lymphatic: No Adenopathy ED TRAUMA EXTREMITY PROCEDURES - Laceration/Wound Repair Right Arm Lac/Wound Length In cm: 6 (skin tear) Appearance: Superficial, Irregular, Clean Distal NVT: Neuro & Vascular Intact, No Tendon Injury Anesthetic Type: Topical Local Anesthesia - Lidocaine (Xylocaine): Other (emla crea) Skin Prep: Chlorhexidine (Hibiciens) Exploration/Debridement/Repair: Wound Explored, In a Bloodless Field, No Foreign Material Found, Other (skin tear repositioned) Closed With: Other (pressure dressing) Sterile Dressing Applied: Provider Tetanus Status Addressed: Yes Complications: No Course - Vital Signs Last Recorded V/S: Last Vital Signs Temp 36.6 C 05/08/19 02:05 Pulse 88 05/08/19 02:05 Resp 18 05/08/19 02:05 BP 132/77 05/08/19 02:05 Pulse Ox 99 05/08/19 02:05 - Orders/Labs/Meds Orders: Active Orders 24 hr Category Date Time Status EKG 12 Lead [EKG Documentation Completion] [RC] STAT Care 05/08/19 02:15 Active Chest 1V Frontal [CR] Urgent Exams 05/08/19 02:17 Taken Head wo Cont [CT] Urgent Exams 05/08/19 02:16 Taken cephALEXin [Keflex] Med 05/08/19 03:22 Once 250 mg PO ONETIME ONE Labs: Laboratory Tests 05/08/19 05/08/19 Range/Units 02:25 02:25 WBC 6.2 (5.0-10.0) 10^3/uL RBC 4.91 (4.6-6.2) 10^6/uL Hgb 14.6 (14.0-18.0) g/dL Hct 43.3 (40.0-54.0) % MCV 88.2 (80-100) fL MCH 29.7 (27.0-34.0) pg MCHC 33.7 (33.0-35.0) g/dL Plt Count 199 (150-450) 10^3/uL Neut % (Auto) 62.4 (42.2-75.2) % Lymph % (Auto) 22.1 (20.5-50.1) % [place] % (Auto) 14.2 H (2-8) % Eos % (Auto) 1.0 (1.0-3.0) % Baso % (Auto) 0.3 (0.0-1.0) % Sodium 132 L (135-145) mmol/L Potassium 3.2 L (3.6-5.0) mmol/L Chloride 94 L (101-111) mmol/L Carbon Dioxide 26.0 (21.0-31.0) mmol/L Anion Gap 15.2 BUN 8 (7-18) mg/dL Creatinine 1.0 (0.6-1.3) mg/dL Est Cr Clr Drug Dosing 53.23 mL/min Estimated GFR (MDRD) > 60 BUN/Creatinine Ratio 8.00 Glucose 98 (74-105) mg/dL Calcium 8.6 (8.4-10.2) mg/dl Total Bilirubin 0.6 (0.2-1.0) mg/dL AST 22 (10-42) IU/L ALT 13 (10-60) IU/L Alkaline Phosphatase 87 (42-121) IU/L Troponin I < 0.02 (0.00-0.02) ng/ml Total Protein 6.6 L (6.7-8.2) g/dl Albumin 2.8 L (3.2-5.5) g/dl Globulin 3.8 Albumin/Globulin Ratio 0.74 Ethyl Alcohol 110 mg/dL Meds: Medications Discontinued Medications Generic Name Dose Route Start Last Admin Trade Name Freq PRN Reason Stop Dose Admin Lidocaine HCl 30 ml 05/08/19 02:27 Xylocaine-Mpf 1% INJECT 05/08/19 02:28 ONETIME ONE Lidocaine/Prilocaine 5 gm 05/08/19 02:37 05/08/19 03:01 Emla Crm TOP 05/08/19 02:38 1 applic ONETIME ONE Administration Lidocaine/Tetracaine 5 ml 05/08/19 02:27 05/08/19 02:40 Let Wandan TOP 05/08/19 02:28 Not Given ONETIME ONE Departure - Departure Time of Disposition: 03:25 Disposition: Home, Self-Care 01 Condition: Good Clinical Impression: Skin tear Alcohol intoxication Qualifiers: Complication of substance-induced condition: uncomplicated Qualified Code(s): F10.920 - Alcohol use, unspecified with intoxication, uncomplicated Syncope Qualifiers: Syncope type: unspecified Qualified Code(s): R55 - Syncope and collapse - Discharge Information Instructions: Skin Tear Care, [id number] Forms: ED Department Discharge Additional Instructions: 1) keep dressing clean dry covered for 48 hours 2) wound recheck in 48 hours rx given; keflex 250mg qid x 40 - My Orders Last 24 Hours: My Active Orders 05/08/19 02:15 EKG 12 Lead [EKG Documentation Completion] [RC] STAT 05/08/19 02:16 Head wo Cont [CT] Urgent 05/08/19 02:17 Chest 1V Frontal [CR] Urgent 05/08/19 03:22 cephALEXin [Keflex] 250 mg PO ONETIME ONE - Assessment/Plan Last 24 Hours: My Active Orders 05/08/19 02:15 EKG 12 Lead [EKG Documentation Completion] [RC] STAT 05/08/19 02:16 Head wo Cont [CT] Urgent 05/08/19 02:17 Chest 1V Frontal [CR] Urgent 05/08/19 03:22 cephALEXin [Keflex] 250 mg PO ONETIME ONE
[2019-05-08] MEDS ORDERED: Lidocaine/EPINEPHrine/Tetracaine Soln 5 ML Each TOP ONE (02:27)
[2019-05-08] MEDS ORDERED: Lidocaine 1% 30 ML SDV INJECT ONE (02:27)
[2019-05-08] MEDS ORDERED: Lidocaine/Prilocaine 2.5-2.5% Crm 5 GM Tube TOP ONE (02:37)
[2019-05-08 02:51] LABS: ANION GAP 15.2; CHLORIDE,CL 94 mmol/L (101-111); SODIUM,NA 132 mmol/L (135-145)
[2019-05-08] MEDS ORDERED: Cephalexin 250 MG Cap PO ONE (03:22)
== END 2019-05-08 03:43 | disposition home or self-care (01) ==
LOC: DL.ED 01:56
DX: R55 Syncope and collapse (principal); S41.111A Laceration without foreign body of right upper arm, initial encounter; S00.81XA Abrasion of other part of head, initial encounter; F10.220 Alcohol dependence with intoxication, uncomplicated; F17.210 Nicotine dependence, cigarettes, uncomplicated; I10 Essential (primary) hypertension; W19.XXXA Unspecified fall, initial encounter; Y90.5 Blood alcohol level of 100-119 mg/100 ml
CPT/HCPCS: 36415; 70450; 71045; 80053; 84484; 85025; 93005; 99285; A9270; G0480

== ENCOUNTER 2019-10-23 00:28 | Emergency (ER) | payer MEDICARE ==
--- NOTE | 2019-10-23 00:49 | EDM.PDOC ---
ED HPI GENERAL MEDICAL PROBLEM - General Chief Complaint: Lower Extremity Injury/Pain Stated Complaint: FOOT Time Seen by Provider: 10/23/19 00:49 Source of Information: Reports: Patient, Family, RN, RN Notes Reviewed History Limitations: Reports: No Limitations - History of Present Illness INITIAL COMMENTS - FREE TEXT/NARRATIVE: patient presents to ER with complaint of swelling, pain, redness to the left lower leg, left ankle, left foot. Patient states the swelling and tenderness has been present for 2-3 days. Patient states the swelling has been increasing, but his daughter just made him come in today to have it checked out. Patient states when sitting at home she sits with his legs dangling dependent, does not elevate them at all. Daughter states history of chronic alcohol abuse, smoking, and alcohol-related dementia. Patient denies diabetes. Patient denies recent fever or chills. Onset: Gradual Onset Date: 10/20/19 Duration: Constant, Getting Worse Location: Reports: Lower Extremity, Left - Related Data Allergies Allergy/AdvReac Type Severity Reaction Status Date / Time No Known Allergies Allergy Verified 10/23/19 00:36 Home Meds: Home Meds . [No Known Home Meds] 05/08/19 [History] Past Medical History HEENT History: Reports: Impaired Vision Cardiovascular History: Reports: Hypertension Respiratory History: Reports: None Gastrointestinal History: Reports: Colon Polyp, GERD Genitourinary History: Reports: None Musculoskeletal History: Reports: None Neurological History: Reports: None Other Neuro History: wernicke-korsakoff syndrome Psychiatric History: Reports: Addiction Endocrine/Metabolic History: Reports: None Hematologic History: Reports: None Immunologic History: Reports: None Oncologic (Cancer) History: Reports: None Dermatologic History: Reports: None - Infectious Disease History Infectious Disease History: Reports: Chicken Pox, Measles - Past Surgical History Head Surgeries/Procedures: Reports: None HEENT Surgical History: Reports: None Cardiovascular Surgical History: Reports: None GI Surgical History: Reports: Colonoscopy, EGD Male Surgical History: Reports: None Musculoskeletal Surgical History: Reports: None Social & Family History - Family History Family Medical History: Noncontributory - Tobacco Use Smoking Status *Q: Current Every Day Smoker Years of Tobacco use: 50 Packs/Tins Daily: 0.5 Second Hand Smoke Exposure: Yes - Caffeine Use Caffeine Use: Reports: Coffee, Energy Drinks, Soda, Tea Caffeine Use Comment: 2 cups daily - Recreational Drug Use Recreational Drug Use: No Review of Systems - Review of Systems Review Of Systems: Comprehensive ROS is negative, except as noted in HPI. ED EXAM, GENERAL - Physical Exam Exam: See Below Exam Limited By: No Limitations General Appearance: Alert, WD/WN, Mild Distress Eye Exam: Bilateral Eye: EOMI, Normal Inspection Ears: Normal External Exam, Hearing Grossly Normal Nose: Normal Inspection Throat/Mouth: Normal Inspection, Normal Voice, No Airway Compromise Head: Atraumatic, Normocephalic Neck: Normal Inspection, Supple, Non-Tender, Full Range of Motion Respiratory/Chest: No Respiratory Distress, No Accessory Muscle Use, Chest Non- Tender, Decreased Breath Sounds Cardiovascular: Normal Peripheral Pulses, Regular Rate, Rhythm, No Edema, No Gallop, No JVD, No Murmur, No Rub Peripheral Pulses: 1+: Dorsalis Pedis (L), 2+: Radial (L), Radial (R), Dorsalis Pedis (R) GI/Abdominal: Normal Bowel Sounds, Soft, Non-Tender (Male) Exam: Deferred Rectal (Males) Exam: Deferred Back Exam: Normal Inspection, Full Range of Motion, NT Extremities: Pedal Edema (+3 pitting), Joint Swelling (left ankle), Rodrigo's Sign , Leg Pain (mid julian down to the left ankle, left foot), Limited Range of Motion (left lower extremity/foot), Redness (left lower leg, left ankle, left foot) Neurological: Alert, Oriented, CN II-XII Intact, Normal Cognition, Normal Gait, Normal Reflexes, No Motor/Sensory Deficits Psychiatric: Normal Affect, Normal Mood Skin Exam: Warm, Dry, Intact, No Rash, Erythema (left lower leg, left ankle, left foot), Lymphangitis (eft lower leg/foot) Lymphatic: No Adenopathy Course - Vital Signs Last Recorded V/S: Last Vital Signs Temp 97.4 F 10/23/19 00:31 Pulse 90 10/23/19 00:31 Resp 18 10/23/19 00:31 BP 111/63 10/23/19 00:31 Pulse Ox 97 10/23/19 00:31 - Orders/Labs/Meds Labs: Laboratory Tests 10/23/19 10/23/19 10/23/19 Range/Units 01:10 01:10 01:10 WBC 6.9 (5.0-10.0) 10^3/uL RBC 3.90 L (4.6-6.2) 10^6/uL Hgb 12.2 L D (14.0-18.0) g/dL Hct 34.8 L (40.0-54.0) % MCV 89.2 (80-100) fL MCH 31.3 (27.0-34.0) pg MCHC 35.1 H (33.0-35.0) g/dL Plt Count 239 (150-450) 10^3/uL Neut % (Auto) 73.2 (42.2-75.2) % Lymph % (Auto) 13.7 L (20.5-50.1) % [place] % (Auto) 12.1 H (2-8) % Eos % (Auto) 0.6 L (1.0-3.0) % Baso % (Auto) 0.4 (0.0-1.0) % PT 10.2 (9.0-12.0) SEC INR 1.0 (0.9-1.2) D-Dimer, Quantitative 487 H (0-400) ng/mL Sodium 124 L (135-145) mmol/L Potassium 4.3 (3.6-5.0) mmol/L Chloride 94 L (101-111) mmol/L Carbon Dioxide 20.0 L (21.0-31.0) mmol/L Anion Gap 14.3 BUN 10 (7-18) mg/dL Creatinine 1.0 (0.6-1.3) mg/dL Est Cr Clr Drug Dosing 51.65 mL/min Estimated GFR (MDRD) > 60 BUN/Creatinine Ratio 10.00 Glucose 97 (74-105) mg/dL Calcium 8.3 L (8.4-10.2) mg/dl Total Bilirubin 0.6 (0.2-1.0) mg/dL AST 27 (10-42) IU/L ALT 17 (10-60) IU/L Alkaline Phosphatase 104 (42-121) IU/L Total Protein 6.5 L (6.7-8.2) g/dl Albumin 2.8 L (3.2-5.5) g/dl Globulin 3.7 Albumin/Globulin Ratio 0.76 - Radiology Interpretation Free Text/Narrative:: Venous Doppler Left lower extremity: FINDINGS: Left deep veins: Unremarkable. The common femoral, femoral, proximal profunda femoral and popliteal veins and visualized calf veins are patent without thrombus. Normal Doppler waveforms. Normal compressibility and/or augmentation response. Left superficial veins: The small saphenous vein is noncompressible. Some flow is identified on spectral Doppler. Saphenofemoral junction is patent without thrombus. Soft tissues: Unremarkable. IMPRESSION: 1. No evidence of deep vein thrombosis. 2. Superficial thrombophlebitis of the small saphenous vein. Thank you for allowing us to participate in the care of your patient. Dictated and Authenticated by: Lester Ascencio MD 10/23/2019 3:26 AM Central Time ([place] & [place]) See rad report Departure - Departure Time of Disposition: 03:29 Disposition: Home, Self-Care 01 Condition: Fair Clinical Impression: Thrombophlebitis leg superficial Qualifiers: Laterality: left Qualified Code(s): I80.02 - Phlebitis and thrombophlebitis of superficial vessels of left lower extremity - Discharge Information *PRESCRIPTION DRUG MONITORING PROGRAM REVIEWED*: No *COPY OF PRESCRIPTION DRUG MONITORING REPORT IN PATIENT BOUBACAR: No Instructions: How to Use Compression Stockings, Thrombophlebitis Forms: ED Department Discharge Additional Instructions: Get Compression stockings to wear and wear them during the day Put feet up as often as possible, do not dangle feet down Follow up with your primary care facility for further management May use Aleve or Ibuprofen as directed for pain Sepsis Event Note - Evaluation Sepsis Screening Result: No Definite Risk - Focused Exam Vital Signs: Vital Signs Temp Pulse Resp BP Pulse Ox 10/23/19 00:31 97.4 F 90 18 111/63 97 Date Exam was Performed: 10/23/19 Time Exam was Performed: 03:30
[2019-10-23 01:33] LABS: ANION GAP 14.3; CHLORIDE,CL 94 mmol/L (101-111); SODIUM,NA 124 mmol/L (135-145)
== END 2019-10-23 03:36 | disposition home or self-care (01) ==
LOC: DL.ED 00:28
DX: I80.02 Phlebitis and thrombophlebitis of superficial vessels of left lower extremity (principal); I10 Essential (primary) hypertension; F17.210 Nicotine dependence, cigarettes, uncomplicated
CPT/HCPCS: 36415; 80053; 85025; 85379; 85610; 93971; 99283; 99284-25

== ENCOUNTER 2019-12-02 19:57 | Inpatient (IN) | payer MEDICAID, MEDICARE, OTHER ==
--- NOTE | 2019-12-02 20:48 | EDM.PDOC ---
"<Caitlin Reynolds - Last Filed: 12/02/19 22:11> ED HPI GENERAL MEDICAL PROBLEM - General Chief Complaint: General Stated Complaint: lower extremity edema, diarrhea Time Seen by Provider: 12/02/19 20:40 Source of Information: Reports: Patient, Family (patient's daughter at bedside) History Limitations: Reports: Altered Mental Status - History of Present Illness INITIAL COMMENTS - FREE TEXT/NARRATIVE: Patient presents to the ED accompanied by his daughter with concerns of lower extremity edema and diarrhea. The patient is an unreliable historian due to mental status changes. The patient's daughter voices concern about lower extremity edema. This edema developed approximately one month ago and initially presented unilaterally (left). He was diagnosed with superficial thrombophlebitis in the ED, he was treated with aspirin. The daughter stated that his swelling did not seem to resolve. He has recently developed bilateral lower extremity edema. The patient vocalizes that his legs do cause him pain. His daughter relates that he has difficulty walking due to the pain. The patient admits to sitting in a chair with his legs on the floor for long periods of time. The patient also voices concern regarding diarrhea. He relates frequent and large volume diarrhea. Onset: Unknown/Unsure Duration: Getting Worse Location: Reports: Lower Extremity, Left (left worse than right), Lower Extremity, Right Quality: Reports: Ache Severity: Moderate Improves with: Reports: None Worsens with: Reports: None Treatments BEE RAISER: Reports: Aspirin Bilateral Lower Leg Pain Score (Numeric/FACES): 2 - Related Data Allergies Allergy/AdvReac Type Severity Reaction Status Date / Time No Known Allergies Allergy Verified 12/02/19 20:07 Home Meds: Home Meds Aspirin [Wilian Chewable] 81 mg PO DAILY 12/02/19 [History] Cyanocobalamin (Vitamin B-12) [B-12] 1,000 mcg PO DAILY 12/02/19 [History] Losartan [Cozaar] 50 mg PO DAILY 12/02/19 [History] Thiamine [Vitamin B-1] 200 mg PO BID 12/02/19 [History] amLODIPine Besylate [Amlodipine Besylate] 10 mg PO DAILY 12/02/19 [History] Past Medical History HEENT History: Reports: Impaired Vision Cardiovascular History: Reports: Hypertension Respiratory History: Reports: None Gastrointestinal History: Reports: Colon Polyp, GERD Genitourinary History: Reports: None Musculoskeletal History: Reports: None Neurological History: Reports: Other (See Below) Other Neuro History: wernicke-korsakoff syndrome Psychiatric History: Reports: Addiction Endocrine/Metabolic History: Reports: None Hematologic History: Reports: None Immunologic History: Reports: None Oncologic (Cancer) History: Reports: None Dermatologic History: Reports: None - Infectious Disease History Infectious Disease History: Reports: Chicken Pox, Measles - Past Surgical History Head Surgeries/Procedures: Reports: None HEENT Surgical History: Reports: None Cardiovascular Surgical History: Reports: None GI Surgical History: Reports: Colonoscopy, EGD Male Surgical History: Reports: None Musculoskeletal Surgical History: Reports: None Social & Family History - Family History Family Medical History: Noncontributory - Tobacco Use Smoking Status *Q: Heavy Tobacco Smoker Years of Tobacco use: 52 Packs/Tins Daily: 0.5 - Caffeine Use Caffeine Use: Reports: Coffee, Energy Drinks, Soda, Tea Caffeine Use Comment: 2 cups daily - Recreational Drug Use Recreational Drug Use: No ED ROS GENERAL - Review of Systems Review Of Systems: Comprehensive ROS is negative, except as noted in HPI. ED EXAM, GENERAL - Physical Exam Exam: See Below Exam Limited By: Altered Mental Status General Appearance: No Apparent Distress, Lethargic, Thin Head: Atraumatic, Normocephalic Respiratory/Chest: No Respiratory Distress, Lungs Clear, Normal Breath Sounds Cardiovascular: Regular Rate, Rhythm, No Murmur GI/Abdominal: Soft, Non-Tender, No Distention Extremities: Pedal Edema (3+ pitting edema to left lower extremity, 1+ pitting edema to right lower extremity), Leg Pain Neurological: Alert, No Motor/Sensory Deficits, Confused, Memory Loss Recent Events, Other (patient exhibits asterixis) Skin Exam: Warm, Dry, Intact Course - Vital Signs Last Recorded V/S: Last Vital Signs Temp 36.4 C 12/02/19 21:11 Pulse 83 12/02/19 21:11 Resp 16 12/02/19 21:11 BP 81/47 L 12/02/19 21:11 Pulse Ox 97 12/02/19 21:11 - Orders/Labs/Meds Orders: Active Orders 24 hr Category Date Time Status Admission Diagnosis [ADT] Urgent ADT 12/02/19 22:12 Ordered Admission Status [Patient Status] [ADT] Routine ADT 12/02/19 22:12 Active Labs: Laboratory Tests 12/02/19 12/02/19 12/02/19 Range/Units 20:45 20:45 20:45 WBC 8.3 (5.0-10.0) 10^3/uL RBC 3.83 L (4.6-6.2) 10^6/uL Hgb 11.6 L (14.0-18.0) g/dL Hct 33.0 L (40.0-54.0) % MCV 86.2 D (80-100) fL MCH 30.3 (27.0-34.0) pg MCHC 35.2 H (33.0-35.0) g/dL Plt Count 244 (150-450) 10^3/uL Neut % (Auto) 83.4 H (42.2-75.2) % Lymph % (Auto) 5.2 L (20.5-50.1) % [place] % (Auto) 11.2 H (2-8) % Eos % (Auto) 0.1 L (1.0-3.0) % Baso % (Auto) 0.1 (0.0-1.0) % Sodium 120 L (136-145) mmol/L Potassium 4.4 (3.5-5.1) mmol/L Chloride 92 L (98-107) mmol/L Carbon Dioxide 19 L (21-32) mmol/L Anion Gap 13.4 H (7-13) mEq/L BUN 6 L (7-18) mg/dL Creatinine 0.89 (0.70-1.30) mg/dL Est Cr Clr Drug Dosing 61.14 mL/min Estimated GFR (MDRD) > 60 BUN/Creatinine Ratio 6.7 (No establ ref range) Glucose 86 (74-99) mg/dL Calcium 7.6 L (8.5-10.1) mg/dL Magnesium 1.9 (1.8-2.4) mg/dL Total Bilirubin 0.5 (0.2-1.0) mg/dL AST 29 (15-37) U/L ALT 25 (16-63) U/L Alkaline Phosphatase 128 H (46-116) U/L Ammonia (11-32) umol/L B-Natriuretic Peptide 127 H (0-100) pg/ml Total Protein 5.6 L (6.4-8.2) g/dL Albumin 2.1 L (3.4-5.0) g/dL Globulin 3.5 Albumin/Globulin Ratio 0.60 Urine Color (YELLOW) Urine Appearance (CLEAR) Urine pH (5.0-9.0) Ur Specific [place] (1.005-1.030) Urine Protein (NEGATIVE) Urine Glucose (UA) (NEGATIVE) Urine Ketones (NEGATIVE) Urine Occult Blood (NEGATIVE) Urine Nitrite (NEGATIVE) Urine Bilirubin (NEGATIVE) Urine Urobilinogen (0.2-1.0) mg/dL Ur Leukocyte Esterase (NEGATIVE) Urine RBC /HPF Urine WBC (0-5/HPF) /HPF Ur Epithelial Cells (NOT SEEN) /HPF Amorphous Sediment (NOT SEEN) /HPF Urine Bacteria (0-FEW/HPF) /HPF Urine Mucus (NOT SEEN) /LPF Ethyl Alcohol 62 (0) mg/dL 12/02/19 12/02/19 Range/Units 20:45 21:02 WBC (5.0-10.0) 10^3/uL RBC (4.6-6.2) 10^6/uL Hgb (14.0-18.0) g/dL Hct (40.0-54.0) % MCV (80-100) fL MCH (27.0-34.0) pg MCHC (33.0-35.0) g/dL Plt Count (150-450) 10^3/uL Neut % (Auto) (42.2-75.2) % Lymph % (Auto) (20.5-50.1) % [place] % (Auto) (2-8) % Eos % (Auto) (1.0-3.0) % Baso % (Auto) (0.0-1.0) % Sodium (136-145) mmol/L Potassium (3.5-5.1) mmol/L Chloride (98-107) mmol/L Carbon Dioxide (21-32) mmol/L Anion Gap (7-13) mEq/L BUN (7-18) mg/dL Creatinine (0.70-1.30) mg/dL Est Cr Clr Drug Dosing mL/min Estimated GFR (MDRD) BUN/Creatinine Ratio (No establ ref range) Glucose (74-99) mg/dL Calcium (8.5-10.1) mg/dL Magnesium (1.8-2.4) mg/dL Total Bilirubin (0.2-1.0) mg/dL AST (15-37) U/L ALT (16-63) U/L Alkaline Phosphatase (46-116) U/L Ammonia 15 (11-32) umol/L B-Natriuretic Peptide (0-100) pg/ml Total Protein (6.4-8.2) g/dL Albumin (3.4-5.0) g/dL Globulin Albumin/Globulin Ratio Urine Color Yellow (YELLOW) Urine Appearance Clear (CLEAR) Urine pH 6.0 (5.0-9.0) Ur Specific [place] <= 1.005 (1.005-1.030) Urine Protein Negative (NEGATIVE) Urine Glucose (UA) Negative (NEGATIVE) Urine Ketones Negative (NEGATIVE) Urine Occult Blood Negative (NEGATIVE) Urine Nitrite Negative (NEGATIVE) Urine Bilirubin Negative (NEGATIVE) Urine Urobilinogen 0.2 (0.2-1.0) mg/dL Ur Leukocyte Esterase Trace H (NEGATIVE) Urine RBC 0-5 /HPF Urine WBC 0-5 (0-5/HPF) /HPF Ur Epithelial Cells Rare (NOT SEEN) /HPF Amorphous Sediment Rare (NOT SEEN) /HPF Urine Bacteria Rare (0-FEW/HPF) /HPF Urine Mucus Rare (NOT SEEN) /LPF Ethyl Alcohol (0) mg/dL Departure - Departure Time of Disposition: 22:12 (Dr. Thomas accepting) Disposition: Admitted As Inpatient 65 Condition: Fair Clinical Impression: Hyponatremia, Alcoholism, Diarrhea - Discharge Information *PRESCRIPTION DRUG MONITORING PROGRAM REVIEWED*: Not Applicable *COPY OF PRESCRIPTION DRUG MONITORING REPORT IN PATIENT BOUBACAR: Not Applicable Forms: ED Department Discharge Sepsis Event Note - Evaluation Sepsis Screening Result: No Definite Risk - Focused Exam Vital Signs: Vital Signs Temp Pulse Resp BP Pulse Ox 12/02/19 21:11 36.4 C 83 16 81/47 L 97 12/02/19 20:07 36.0 C L 83 18 99/50 L 100 Date Exam was Performed: 12/02/19 Time Exam was Performed: 22:11 - My Orders Last 24 Hours: My Active Orders 12/02/19 22:12 Admission Diagnosis [ADT] Urgent Admission Status [Patient Status] [ADT] Routine - Assessment/Plan Last 24 Hours: My Active Orders 12/02/19 22:12 Admission Diagnosis [ADT] Urgent Admission Status [Patient Status] [ADT] Routine <Daljit Jordan M - Last Filed: 12/02/19 22:16> Course - Re-Assessments/Exams Free Text/Narrative Re-Assessment/Exam: 12/02/19 22:15 PROCEDURE INFORMATION: Exam: XR Chest, 1 View Exam date and time: 12/02/2019 8:23 PM Age: 64 years old Clinical indication: Shortness of breath and other: Tachycsrdia, copd TECHNIQUE: Imaging protocol: XR of the chest Views: 1 view. COMPARISON: No relevant prior studies available. FINDINGS: Lungs: There is hyperinflation bilaterally consistent with underlying COPD. Some areas of bilateral lung scarring are noted. There are no areas of acute infiltrate or edema. No suspicious nodules or focal lung lesions. Pleural space: Unremarkable. No pleural effusion. No pneumothorax. Heart/Mediastinum: Unremarkable. No cardiomegaly. Bones/joints: Unremarkable. IMPRESSION: 1. No acute lung infiltrates or consolidation. 2. Hyperinflation consistent with COPD. 3. Right apical chronic appearing scarring. 4. Right mid lung field and left lower lung field minor linear atelectasis versus scar. Thank you for allowing us to participate in the care of your patient. Dictated and Authenticated by: Quinton Laura MD BULL, DELLA | Final Radiology Report CONFIDENTIALITY STATEMENT This report is intended only for use by the referring physician, and only in accordance with law. If you received this in error, call [phone]. Page 2 of 2 12/02/2019 8:41 PM Central Time ([place] & [place]) Sepsis Event Note - Focused Exam Date Exam was Performed: 12/02/19 Time Exam was Performed: 22:15"
[2019-12-02 21:14] LABS: ANION GAP 13.4 mEq/L (7-13); CHLORIDE,CL 92 mmol/L (98-107); SODIUM,NA 120 mmol/L (136-145)
[2019-12-02] MEDS ORDERED: Thiamine 100 MG Tab PO SCH ×2 (23:15→23:30)
[2019-12-02] MEDS ORDERED: Sodium Chloride 0.9% 250 ML IV SCH (23:15)
--- NOTE | 2019-12-02 23:20 | PCM.HP ---
H&P History of Present Illness - General Date of Service: 12/02/19 Admit Problem/Dx: Admission Diagnosis/Problem Admission Diagnosis/Problem Hyponatremia Source of Information: Patient, Family (Daughter) History Limitations: Reports: Other (History of dementia) - History of Present Illness Initial Comments - Free Text/Narative: 69-year-old gentleman with a history of all chronic cirrhosis, dementia which is likely alcohol-related, hypertension The patient has been having loose bowel movements 2-5 times in the past month. He has been drinking about 12 beers a day. Noted increasing lower extremity edema. Has chronic cough, no associated recent fever No unusual shortness of breath, chest pain, abdominal pain Stool is not black or bloody Has been on Norvasc for a while but the dose of her medication was not changed lately Bilateral Lower Leg Pain Score (Numeric/FACES): 2 - Related Data Allergies/Adverse Reactions: Allergies Allergy/AdvReac Type Severity Reaction Status Date / Time No Known Allergies Allergy Verified 12/02/19 20:07 Home Medications: Home Meds Aspirin [Wilian Chewable] 81 mg PO DAILY 12/02/19 [History] Cyanocobalamin (Vitamin B-12) [B-12] 1,000 mcg PO DAILY 12/02/19 [History] Losartan [Cozaar] 50 mg PO DAILY 12/02/19 [History] Thiamine [Vitamin B-1] 200 mg PO DAILY 12/02/19 [History] amLODIPine Besylate [Amlodipine Besylate] 10 mg PO DAILY 12/02/19 [History] Past Medical History HEENT History: Reports: Impaired Vision Cardiovascular History: Reports: Hypertension Respiratory History: Reports: None Gastrointestinal History: Reports: Chronic Diarrhea, Colon Polyp, GERD Genitourinary History: Reports: None Musculoskeletal History: Reports: None Neurological History: Reports: Other (See Below) Other Neuro History: wernicke-korsakoff syndrome Psychiatric History: Reports: Addiction, Dementia Endocrine/Metabolic History: Reports: None Hematologic History: Reports: None Immunologic History: Reports: None Oncologic (Cancer) History: Reports: None Dermatologic History: Reports: None - Infectious Disease History Infectious Disease History: Reports: Chicken Pox, Measles - Past Surgical History Head Surgeries/Procedures: Reports: None HEENT Surgical History: Reports: None Cardiovascular Surgical History: Reports: None GI Surgical History: Reports: Colonoscopy, EGD Male Surgical History: Reports: None Musculoskeletal Surgical History: Reports: None Social & Family History - Family History Family Medical History: Noncontributory - Tobacco Use Smoking Status *Q: Current Every Day Smoker Years of Tobacco use: 55 Packs/Tins Daily: 1 Second Hand Smoke Exposure: No - Caffeine Use Caffeine Use: Reports: Coffee Caffeine Use Comment: 2 cups daily - Alcohol Use Days Per Week of Alcohol Use: 7 Number of Drinks Per Day: 12 Total Drinks Per Week: 84 Date of Last Drink: 12/02/19 Time of Last Drink: 19:00 - Recreational Drug Use Recreational Drug Use: No H&P Review of Systems - Review of Systems: Review Of Systems: See Below General: Denies: Fever, Chills Pulmonary: Denies: Shortness of Breath Cardiovascular: Reports: Edema. Denies: Chest Pain Gastrointestinal: Reports: Diarrhea. Denies: Abdominal Pain, Melena, Vomiting Genitourinary: Denies: Dysuria Psychiatric: Reports: Confusion (Chronic) Exam - Exam Exam: See Below - Vital Signs Vital Signs: Last Vital Signs Temp 97.5 F 12/02/19 22:31 Pulse 90 12/02/19 22:31 Resp 18 12/02/19 22:31 BP 95/45 L 12/02/19 22:31 Pulse Ox 97 12/02/19 21:11 Weight: 119 lb - Exam General: Alert, Oriented Neck: Supple Lungs: Clear to Auscultation, Normal Respiratory Effort, Decreased Breath Sounds Cardiovascular: Regular Rate, Regular Rhythm GI/Abdominal Exam: Normal Bowel Sounds, Soft, Non-Tender Extremities: Pedal Edema (Bilateral 2+) Skin: Warm, Other (Excoriation in the lower extremities bilaterally with redness ) - Patient Data Lab Results Last 24 hrs: Laboratory Results - last 24 hr 12/02/19 12/02/19 12/02/19 Range/Units 20:45 20:45 20:45 WBC 8.3 (5.0-10.0) 10^3/uL RBC 3.83 L (4.6-6.2) 10^6/uL Hgb 11.6 L (14.0-18.0) g/dL Hct 33.0 L (40.0-54.0) % MCV 86.2 D (80-100) fL MCH 30.3 (27.0-34.0) pg MCHC 35.2 H (33.0-35.0) g/dL Plt Count 244 (150-450) 10^3/uL Neut % (Auto) 83.4 H (42.2-75.2) % Lymph % (Auto) 5.2 L (20.5-50.1) % [place] % (Auto) 11.2 H (2-8) % Eos % (Auto) 0.1 L (1.0-3.0) % Baso % (Auto) 0.1 (0.0-1.0) % Sodium 120 L (136-145) mmol/L Potassium 4.4 (3.5-5.1) mmol/L Chloride 92 L (98-107) mmol/L Carbon Dioxide 19 L (21-32) mmol/L Anion Gap 13.4 H (7-13) mEq/L BUN 6 L (7-18) mg/dL Creatinine 0.89 (0.70-1.30) mg/dL Est Cr Clr Drug Dosing 61.14 mL/min Estimated GFR (MDRD) > 60 BUN/Creatinine Ratio 6.7 (No establ ref range) Glucose 86 (74-99) mg/dL Calcium 7.6 L (8.5-10.1) mg/dL Magnesium 1.9 (1.8-2.4) mg/dL Total Bilirubin 0.5 (0.2-1.0) mg/dL AST 29 (15-37) U/L ALT 25 (16-63) U/L Alkaline Phosphatase 128 H (46-116) U/L Ammonia (11-32) umol/L B-Natriuretic Peptide 127 H (0-100) pg/ml Total Protein 5.6 L (6.4-8.2) g/dL Albumin 2.1 L (3.4-5.0) g/dL Globulin 3.5 Albumin/Globulin Ratio 0.60 Urine Color (YELLOW) Urine Appearance (CLEAR) Urine pH (5.0-9.0) Ur Specific [place] (1.005-1.030) Urine Protein (NEGATIVE) Urine Glucose (UA) (NEGATIVE) Urine Ketones (NEGATIVE) Urine Occult Blood (NEGATIVE) Urine Nitrite (NEGATIVE) Urine Bilirubin (NEGATIVE) Urine Urobilinogen (0.2-1.0) mg/dL Ur Leukocyte Esterase (NEGATIVE) Urine RBC /HPF Urine WBC (0-5/HPF) /HPF Ur Epithelial Cells (NOT SEEN) /HPF Amorphous Sediment (NOT SEEN) /HPF Urine Bacteria (0-FEW/HPF) /HPF Urine Mucus (NOT SEEN) /LPF Ethyl Alcohol 62 (0) mg/dL 12/02/19 12/02/19 Range/Units 20:45 21:02 WBC (5.0-10.0) 10^3/uL RBC (4.6-6.2) 10^6/uL Hgb (14.0-18.0) g/dL Hct (40.0-54.0) % MCV (80-100) fL MCH (27.0-34.0) pg MCHC (33.0-35.0) g/dL Plt Count (150-450) 10^3/uL Neut % (Auto) (42.2-75.2) % Lymph % (Auto) (20.5-50.1) % [place] % (Auto) (2-8) % Eos % (Auto) (1.0-3.0) % Baso % (Auto) (0.0-1.0) % Sodium (136-145) mmol/L Potassium (3.5-5.1) mmol/L Chloride (98-107) mmol/L Carbon Dioxide (21-32) mmol/L Anion Gap (7-13) mEq/L BUN (7-18) mg/dL Creatinine (0.70-1.30) mg/dL Est Cr Clr Drug Dosing mL/min Estimated GFR (MDRD) BUN/Creatinine Ratio (No establ ref range) Glucose (74-99) mg/dL Calcium (8.5-10.1) mg/dL Magnesium (1.8-2.4) mg/dL Total Bilirubin (0.2-1.0) mg/dL AST (15-37) U/L ALT (16-63) U/L Alkaline Phosphatase (46-116) U/L Ammonia 15 (11-32) umol/L B-Natriuretic Peptide (0-100) pg/ml Total Protein (6.4-8.2) g/dL Albumin (3.4-5.0) g/dL Globulin Albumin/Globulin Ratio Urine Color Yellow (YELLOW) Urine Appearance Clear (CLEAR) Urine pH 6.0 (5.0-9.0) Ur Specific [place] <= 1.005 (1.005-1.030) Urine Protein Negative (NEGATIVE) Urine Glucose (UA) Negative (NEGATIVE) Urine Ketones Negative (NEGATIVE) Urine Occult Blood Negative (NEGATIVE) Urine Nitrite Negative (NEGATIVE) Urine Bilirubin Negative (NEGATIVE) Urine Urobilinogen 0.2 (0.2-1.0) mg/dL Ur Leukocyte Esterase Trace H (NEGATIVE) Urine RBC 0-5 /HPF Urine WBC 0-5 (0-5/HPF) /HPF Ur Epithelial Cells Rare (NOT SEEN) /HPF Amorphous Sediment Rare (NOT SEEN) /HPF Urine Bacteria Rare (0-FEW/HPF) /HPF Urine Mucus Rare (NOT SEEN) /LPF Ethyl Alcohol (0) mg/dL Result Diagrams: 12/02/19 20:45 12/02/19 20:45 - Problem List (1) Hypertension SNOMED Code(s): 11678435 ICD Code: I10 - ESSENTIAL (PRIMARY) HYPERTENSION Status: Acute Current Visit: Yes (2) Alcoholism SNOMED Code(s): 6563089 ICD Code: F10.20 - ALCOHOL DEPENDENCE, UNCOMPLICATED Status: Acute Current Visit: No (3) Diarrhea SNOMED Code(s): 56118293 ICD Code: R19.7 - DIARRHEA, UNSPECIFIED Status: Acute Current Visit: No (4) Hyponatremia SNOMED Code(s): 27541663 ICD Code: E87.1 - HYPO-OSMOLALITY AND HYPONATREMIA Status: Acute Current Visit: No Problem List Initiated/Reviewed/Updated: Yes Orders Last 24hrs: Active Orders 24 hr Category Date Time Status Admission Diagnosis [ADT] Urgent ADT 12/02/19 22:12 Ordered Admission Status [Patient Status] [ADT] Routine ADT 12/02/19 22:12 Active Antiembolic Devices [RC] PER UNIT ROUTINE Care 12/02/19 23:06 Ordered BASIC METABOLIC PANEL,BMP [CHEM] AM Lab 12/03/19 05:15 Ordered CBC WITH AUTO DIFF [HEME] AM Lab 12/03/19 05:15 Ordered CLOSTRIDIUM DIFFICILE TOX RFLX [MREF] Routine Lab 12/02/19 23:13 Ordered Aspirin Med 12/03/19 09:00 Ordered 81 mg PO DAILY Cyanocobalamin (Vitamin B12) [Vitamin B12] Med 12/03/19 09:00 Ordered 1,000 mcg PO DAILY Folic Acid Med 12/02/19 23:30 Ordered 1 mg PO BEDTIME Furosemide [Lasix] Med 12/02/19 23:15 Ordered 20 mg PO DAILY Multivitamins,Therapeutic [Thera] Med 12/02/19 23:30 Ordered 1 each PO BEDTIME Potassium Chloride [Klor-Con 10] Med 12/03/19 08:00 Ordered 20 meq PO WITHBREAKFAST Sodium Chloride 0.9% @ 50 MLS/HR(250ml) Med 12/02/19 23:15 Ordered Sodium Chloride 0.9% [Normal Saline] 250 ml IV ASDIRECTED Thiamine [Vitamin B-1] Med 12/02/19 23:15 Ordered 200 mg PO BEDTIME Isolation [COMM] Stat Oth 12/02/19 23:14 Ordered NATHANAEL Hose [Antiembolic Hose] [OM.PC] Routine Ot 12/02/19 23:06 Ordered Medication Orders Aspirin (Aspirin) 81 mg PO DAILY GAB Cyanocobalamin (Vitamin B12) 1,000 mcg PO DAILY GAB Folic Acid (Folic Acid) 1 mg PO BEDTIME GAB Furosemide (Lasix) 20 mg PO DAILY GAB Sodium Chloride (Normal Saline) 250 mls @ 50 mls/hr IV ASDIRECTED GAB Multivitamins (Thera) 1 each PO BEDTIME GAB Potassium Chloride (Klor-Con 10) 20 meq PO WITHBREAKFAST GAB Thiamine HCl (Vitamin B-1) 200 mg PO BEDTIME GAB Assessment/Plan Comment:: 69-year-old gentleman presented with the lower extremity edema, diarrhea In the emergency room the patient was noted to have severe hyponatremia,Lower blood pressures Severe hyponatremia This is likely secondary to significant the beer consumption, he has been drinking 12 beers a day Associated with diarrhea We'll give the patient gentle IV fluid with normal saline Decrease free water intake Recheck sodium in 6 hours Give diuretics given the lower extremity edema and hyponatremia Lower extremity edema Likely secondary to low albumin, hypervolemia Start Lasix Follow electrolytes and renal function test Supplement potassium along with diuretics Limit oral intake of fluids History of hypertension Now the blood pressure has been low Hold [place] and Eliseo History of alcohol abuse We'll follow for potential withdrawal We will give thiamine, folate, multivitamins Dementia We'll have high risk for hospital related delirium development DVT prophylaxis with SCDs
[2019-12-02] MEDS ORDERED: Ondansetron 4 MG Tab.DIS PO PRN (23:21)
[2019-12-02] MEDS ORDERED: Ondansetron 4 MG/2 ML SDV IVPUSH PRN (23:21)
[2019-12-02] MEDS ORDERED: Acetaminophen 325 MG Tab PO PRN (23:21)
[2019-12-02] MEDS ORDERED: Sodium Chloride 0.9% 10 ML Syringe FLUSH PRN (23:21)
[2019-12-03] MEDS: Thiamine 100 MG Tab PO SCH ×2 (00:02→21:07)
[2019-12-03] MEDS: Zolpidem 5 MG Tab PO PRN (00:03)
[2019-12-03] MEDS: Furosemide 20 MG Tab PO SCH ×2 (00:03→09:13)
[2019-12-03] MEDS: Folic Acid 1 MG Tab PO SCH ×2 (00:03→21:07)
[2019-12-03] MEDS: Multivitamins,Therapeutic Tab PO SCH ×2 (00:03→21:07)
[2019-12-03] MEDS ORDERED: Sodium Chloride 0.9% 1,000 ML IV SCH (04:45)
[2019-12-03] MEDS: Heparin Sodium 5,000 Units/ML Vial SUBCUT SCH ×3 (06:07→21:06)
[2019-12-03 06:59] LABS: ANION GAP 13.7 mEq/L (7-13); CHLORIDE,CL 98 mmol/L (98-107); SODIUM,NA 129 mmol/L (136-145)
[2019-12-03] MEDS: Potassium Chloride 10 MEQ Tab.ER PO SCH (09:12)
[2019-12-03] MEDS: Aspirin 81 MG Tab.Chew PO SCH (09:12)
[2019-12-03] MEDS: Cyanocobalamin (Vitamin B12) 1,000 MCG Tab PO SCH (09:13)
--- NOTE | 2019-12-03 09:50 | PCM.PN ---
- General Info Date of Service: 12/03/19 Subjective Update: feeling well no c/o sob, cp no n/v leg swelling better Functional Status: Reports: Pain Controlled, Tolerating Diet - Review of Systems General: Reports: Weakness. Denies: Fever Pulmonary: Denies: Shortness of Breath Cardiovascular: Reports: Edema. Denies: Chest Pain Genitourinary: Denies: Dysuria - Patient Data Vitals - Most Recent: Last Vital Signs Temp 98.2 F 12/03/19 07:57 Pulse 87 12/03/19 07:57 Resp 20 12/03/19 07:57 BP 86/59 L 12/03/19 07:57 Pulse Ox 95 12/03/19 07:57 Weight - Most Recent: 117 lb I&O - Last 24 Hours: Intake & Output 12/02/19 12/03/19 12/03/19 22:59 06:59 14:59 Intake Total 450 300 Output Total 510 700 450 Balance -510 -250 -150 Lab Results Last 24 Hours: Laboratory Results - last 24 hr 12/02/19 12/02/19 12/02/19 Range/Units 20:45 20:45 20:45 WBC 8.3 (5.0-10.0) 10^3/uL RBC 3.83 L (4.6-6.2) 10^6/uL Hgb 11.6 L (14.0-18.0) g/dL Hct 33.0 L (40.0-54.0) % MCV 86.2 D (80-100) fL MCH 30.3 (27.0-34.0) pg MCHC 35.2 H (33.0-35.0) g/dL Plt Count 244 (150-450) 10^3/uL Neut % (Auto) 83.4 H (42.2-75.2) % Lymph % (Auto) 5.2 L (20.5-50.1) % Barron % (Auto) 11.2 H (2-8) % Eos % (Auto) 0.1 L (1.0-3.0) % Baso % (Auto) 0.1 (0.0-1.0) % Add Manual Diff Neutrophils % (Manual) (42-75) % Lymphocytes % (Manual) (20-50) % Monocytes % (Manual) (2-8) % Platelet Estimate Sodium 120 L (136-145) mmol/L Potassium 4.4 (3.5-5.1) mmol/L Chloride 92 L (98-107) mmol/L Carbon Dioxide 19 L (21-32) mmol/L Anion Gap 13.4 H (7-13) mEq/L BUN 6 L (7-18) mg/dL Creatinine 0.89 (0.70-1.30) mg/dL Est Cr Clr Drug Dosing 61.14 mL/min Estimated GFR (MDRD) > 60 BUN/Creatinine Ratio 6.7 (No establ ref range) Glucose 86 (74-99) mg/dL Calcium 7.6 L (8.5-10.1) mg/dL Phosphorus (2.6-4.7) mg/dL Magnesium 1.9 (1.8-2.4) mg/dL Total Bilirubin 0.5 (0.2-1.0) mg/dL AST 29 (15-37) U/L ALT 25 (16-63) U/L Alkaline Phosphatase 128 H (46-116) U/L Ammonia (11-32) umol/L B-Natriuretic Peptide 127 H (0-100) pg/ml Total Protein 5.6 L (6.4-8.2) g/dL Albumin 2.1 L (3.4-5.0) g/dL Globulin 3.5 Albumin/Globulin Ratio 0.60 Urine Color (YELLOW) Urine Appearance (CLEAR) Urine pH (5.0-9.0) Ur Specific [place] (1.005-1.030) Urine Protein (NEGATIVE) Urine Glucose (UA) (NEGATIVE) Urine Ketones (NEGATIVE) Urine Occult Blood (NEGATIVE) Urine Nitrite (NEGATIVE) Urine Bilirubin (NEGATIVE) Urine Urobilinogen (0.2-1.0) mg/dL Ur Leukocyte Esterase (NEGATIVE) Urine RBC /HPF Urine WBC (0-5/HPF) /HPF Ur Epithelial Cells (NOT SEEN) /HPF Amorphous Sediment (NOT SEEN) /HPF Urine Bacteria (0-FEW/HPF) /HPF Urine Mucus (NOT SEEN) /LPF Ethyl Alcohol 62 (0) mg/dL 12/02/19 12/02/19 12/03/19 Range/Units 20:45 21:02 06:30 WBC 6.4 (5.0-10.0) 10^3/uL RBC 3.89 L (4.6-6.2) 10^6/uL Hgb 11.9 L (14.0-18.0) g/dL Hct 33.5 L (40.0-54.0) % MCV 86.1 (80-100) fL MCH 30.6 (27.0-34.0) pg MCHC 35.5 H (33.0-35.0) g/dL Plt Count 241 (150-450) 10^3/uL Neut % (Auto) 74.3 (42.2-75.2) % Lymph % (Auto) 7.8 L (20.5-50.1) % Barron % (Auto) 17.4 H (2-8) % Eos % (Auto) 0.2 L (1.0-3.0) % Baso % (Auto) 0.3 (0.0-1.0) % Add Manual Diff Yes Neutrophils % (Manual) 77 H (42-75) % Lymphocytes % (Manual) 6 L (20-50) % Monocytes % (Manual) 17 H (2-8) % Platelet Estimate Adequate Sodium (136-145) mmol/L Potassium (3.5-5.1) mmol/L Chloride (98-107) mmol/L Carbon Dioxide (21-32) mmol/L Anion Gap (7-13) mEq/L BUN (7-18) mg/dL Creatinine (0.70-1.30) mg/dL Est Cr Clr Drug Dosing mL/min Estimated GFR (MDRD) BUN/Creatinine Ratio (No establ ref range) Glucose (74-99) mg/dL Calcium (8.5-10.1) mg/dL Phosphorus (2.6-4.7) mg/dL Magnesium (1.8-2.4) mg/dL Total Bilirubin (0.2-1.0) mg/dL AST (15-37) U/L ALT (16-63) U/L Alkaline Phosphatase (46-116) U/L Ammonia 15 (11-32) umol/L B-Natriuretic Peptide (0-100) pg/ml Total Protein (6.4-8.2) g/dL Albumin (3.4-5.0) g/dL Globulin Albumin/Globulin Ratio Urine Color Yellow (YELLOW) Urine Appearance Clear (CLEAR) Urine pH 6.0 (5.0-9.0) Ur Specific [place] <= 1.005 (1.005-1.030) Urine Protein Negative (NEGATIVE) Urine Glucose (UA) Negative (NEGATIVE) Urine Ketones Negative (NEGATIVE) Urine Occult Blood Negative (NEGATIVE) Urine Nitrite Negative (NEGATIVE) Urine Bilirubin Negative (NEGATIVE) Urine Urobilinogen 0.2 (0.2-1.0) mg/dL Ur Leukocyte Esterase Trace H (NEGATIVE) Urine RBC 0-5 /HPF Urine WBC 0-5 (0-5/HPF) /HPF Ur Epithelial Cells Rare (NOT SEEN) /HPF Amorphous Sediment Rare (NOT SEEN) /HPF Urine Bacteria Rare (0-FEW/HPF) /HPF Urine Mucus Rare (NOT SEEN) /LPF Ethyl Alcohol (0) mg/dL 12/03/19 Range/Units 06:30 WBC (5.0-10.0) 10^3/uL RBC (4.6-6.2) 10^6/uL Hgb (14.0-18.0) g/dL Hct (40.0-54.0) % MCV (80-100) fL MCH (27.0-34.0) pg MCHC (33.0-35.0) g/dL Plt Count (150-450) 10^3/uL Neut % (Auto) (42.2-75.2) % Lymph % (Auto) (20.5-50.1) % Barron % (Auto) (2-8) % Eos % (Auto) (1.0-3.0) % Baso % (Auto) (0.0-1.0) % Add Manual Diff Neutrophils % (Manual) (42-75) % Lymphocytes % (Manual) (20-50) % Monocytes % (Manual) (2-8) % Platelet Estimate Sodium 129 L (136-145) mmol/L Potassium 3.7 (3.5-5.1) mmol/L Chloride 98 (98-107) mmol/L Carbon Dioxide 21 (21-32) mmol/L Anion Gap 13.7 H (7-13) mEq/L BUN 6 L (7-18) mg/dL Creatinine 0.83 (0.70-1.30) mg/dL Est Cr Clr Drug Dosing 62.16 mL/min Estimated GFR (MDRD) > 60 BUN/Creatinine Ratio (No establ ref range) Glucose 81 (74-99) mg/dL Calcium 7.7 L (8.5-10.1) mg/dL Phosphorus 3.3 (2.6-4.7) mg/dL Magnesium 1.9 (1.8-2.4) mg/dL Total Bilirubin (0.2-1.0) mg/dL AST (15-37) U/L ALT (16-63) U/L Alkaline Phosphatase (46-116) U/L Ammonia (11-32) umol/L B-Natriuretic Peptide (0-100) pg/ml Total Protein (6.4-8.2) g/dL Albumin (3.4-5.0) g/dL Globulin Albumin/Globulin Ratio Urine Color (YELLOW) Urine Appearance (CLEAR) Urine pH (5.0-9.0) Ur Specific [place] (1.005-1.030) Urine Protein (NEGATIVE) Urine Glucose (UA) (NEGATIVE) Urine Ketones (NEGATIVE) Urine Occult Blood (NEGATIVE) Urine Nitrite (NEGATIVE) Urine Bilirubin (NEGATIVE) Urine Urobilinogen (0.2-1.0) mg/dL Ur Leukocyte Esterase (NEGATIVE) Urine RBC /HPF Urine WBC (0-5/HPF) /HPF Ur Epithelial Cells (NOT SEEN) /HPF Amorphous Sediment (NOT SEEN) /HPF Urine Bacteria (0-FEW/HPF) /HPF Urine Mucus (NOT SEEN) /LPF Ethyl Alcohol (0) mg/dL Med Orders - Current: Current Medications Acetaminophen (Tylenol) 650 mg PO Q4H PRN PRN Reason: Pain (Mild 1-3)/fever Aspirin (Aspirin) 81 mg PO DAILY [facility] Last Admin: 12/03/19 09:12 Dose: 81 mg Cyanocobalamin (Vitamin B12) 1,000 mcg PO DAILY [facility] Last Admin: 12/03/19 09:13 Dose: 1,000 mcg Folic Acid (Folic Acid) 1 mg PO BEDTIME [facility] Last Admin: 12/03/19 00:03 Dose: 1 mg Furosemide (Lasix) 20 mg PO DAILY [facility] Last Admin: 12/03/19 09:13 Dose: 20 mg Heparin Sodium (Porcine) (Heparin Sodium) 5,000 units SUBCUT Q8HR [facility] Last Admin: 12/03/19 06:07 Dose: 5,000 units Multivitamins (Thera) 1 each PO BEDTIME [facility] Last Admin: 12/03/19 00:03 Dose: 1 each Ondansetron HCl (Zofran Odt) 4 mg PO Q4H PRN PRN Reason: nausea, able to take PO Ondansetron HCl (Zofran) 4 mg IVPUSH Q4H PRN PRN Reason: Nausea/Vomiting Potassium Chloride (Klor-Con 10) 20 meq PO WITHBREAKFAST [facility] Last Admin: 12/03/19 09:12 Dose: 20 meq Sodium Chloride (Saline Flush) 10 ml FLUSH ASDIRECTED PRN PRN Reason: Keep Vein Open Thiamine HCl (Vitamin B-1) 200 mg PO BEDTIME [facility] Last Admin: 12/03/19 00:02 Dose: 200 mg Zolpidem Tartrate (Ambien) 5 mg PO BEDTIME PRN PRN Reason: Sleep Last Admin: 12/03/19 00:03 Dose: 5 mg Discontinued Medications Folic Acid (Folic Acid) 1 mg PO BEDTIME [facility] Sodium Chloride (Normal Saline) 250 mls @ 50 mls/hr IV ASDIRECTED [facility] Last Admin: 12/03/19 00:02 Dose: 50 mls/hr Sodium Chloride (Normal Saline) 1,000 mls @ 50 mls/hr IV ASDIRECTED [facility] Last Admin: 12/03/19 06:07 Dose: 50 mls/hr Thiamine HCl (Vitamin B-1) 100 mg PO BEDTIME [facility] Thiamine HCl (Vitamin B-1) 200 mg PO DAILY [facility] - Exam General: Alert, Oriented Neck: Supple Lungs: Clear to Auscultation, Normal Respiratory Effort Cardiovascular: Regular Rate, Regular Rhythm GI/Abdominal Exam: Normal Bowel Sounds, Soft, Non-Tender Extremities: Pedal Edema (b/l 1+) Skin: Warm, Dry Neurological: No New Focal Deficit Psy/Mental Status: Alert, Normal Affect, Normal Mood Sepsis Event Note - Evaluation Sepsis Screening Result: No Definite Risk - Focused Exam Vital Signs: Vital Signs Temp Pulse Resp BP BP Pulse Ox 12/03/19 07:57 98.2 F 87 20 86/59 L 95 12/03/19 04:00 98.6 F 88 16 90/54 L 98 12/02/19 22:31 97.5 F 90 18 95/45 L 83/47 L Date Exam was Performed: 12/03/19 Time Exam was Performed: 09:50 - Problem List & Annotations (1) Hypertension SNOMED Code(s): 56119921 Code(s): I10 - ESSENTIAL (PRIMARY) HYPERTENSION Status: Acute Current Visit: Yes (2) Alcoholism SNOMED Code(s): 9173026 Code(s): F10.20 - ALCOHOL DEPENDENCE, UNCOMPLICATED Status: Acute Current Visit: No (3) Diarrhea SNOMED Code(s): 57781945 Code(s): R19.7 - DIARRHEA, UNSPECIFIED Status: Acute Current Visit: No (4) Hyponatremia SNOMED Code(s): 19625249 Code(s): E87.1 - HYPO-OSMOLALITY AND HYPONATREMIA Status: Acute Current Visit: No - Problem List Review Problem List Initiated/Reviewed/Updated: Yes - My Orders Last 24 Hours: My Active Orders 12/02/19 23:06 Antiembolic Devices [RC] 08,20 NATHANAEL Hose [Antiembolic Hose] [OM.PC] Routine 12/02/19 23:13 CLOSTRIDIUM DIFFICILE TOX RFLX [MREF] Routine 12/02/19 23:14 Isolation [COMM] Stat 12/02/19 23:15 Furosemide [Lasix] 20 mg PO DAILY Thiamine [Vitamin B-1] 200 mg PO BEDTIME 12/02/19 23:21 Up With Assistance [RC] ASDIRECTED Acetaminophen [Tylenol] 650 mg PO Q4H PRN Ondansetron [Zofran ODT] 4 mg PO Q4H PRN Ondansetron [Zofran] 4 mg IVPUSH Q4H PRN Sodium Chloride 0.9% [Saline Flush] 10 ml FLUSH ASDIRECTED PRN Zolpidem [Ambien] 5 mg PO BEDTIME PRN Peripheral IV Insertion Adult [OM.PC] Routine Resuscitation Status Routine 12/02/19 23:22 Ambulate [RC] PER UNIT ROUTINE Oxygen Therapy [RC] PRN VTE/DVT Education [RC] PER UNIT ROUTINE Vital Signs [RC] 00,04,08,12,16,20 12/02/19 23:23 Peripheral IV Care [RC] 09,12/02/19 23:30 Folic Acid 1 mg PO BEDTIME Multivitamins,Therapeutic [Thera] 1 each PO BEDTIME 12/03/19 06:00 Heparin Sodium 5,000 units SUBCUT Q8HR 12/03/19 08:00 Potassium Chloride [Klor-Con 10] 20 meq PO WITHBREAKFAST 12/03/19 09:00 Aspirin 81 mg PO DAILY Cyanocobalamin (Vitamin B12) [Vitamin B12] 1,000 mcg PO DAILY - Plan Plan:: 69-year-old gentleman presented with the lower extremity edema, diarrhea In the emergency room the patient was noted to have severe hyponatremia,Lower blood pressures Severe hyponatremia This is likely secondary to significant the beer consumption, he has been drinking 12 beers a day Associated with diarrhea sodium improved - stop IVF to decrease rate of correction Decrease free water intake (stop drinking beer 12 cans daily) Recheck sodium Give diuretics given the lower extremity edema and hyponatremia Lower extremity edema Likely secondary to low albumin, hypervolemia Start Lasix Follow electrolytes and renal function test Supplement potassium along with diuretics History of hypertension Now the blood pressure is low Hold Phuc History of alcohol abuse We'll follow for potential withdrawal We will give thiamine, folate, multivitamins Dementia We'll have high risk for hospital related delirium development DVT prophylaxis with heparin
[2019-12-03] MEDS ORDERED: LORazepam 1 MG Tab PO PRN (09:53)
[2019-12-03] MEDS ORDERED: LORazepam 2 MG/ML SDV IVPUSH PRN (09:54)
[2019-12-03] MEDS: Nicotine 14 MG/24 Hr Patch TRDERM SCH (16:08)
[2019-12-03] MEDS ORDERED: Folic Acid 1 MG Tab PO SCH (23:30)
[2019-12-04] MEDS: Zolpidem 5 MG Tab PO PRN (00:56)
[2019-12-04] MEDS: Heparin Sodium 5,000 Units/ML Vial SUBCUT SCH (05:10)
[2019-12-04 07:20] LABS: CHLORIDE,CL 98 mmol/L (98-107); SODIUM,NA 130 mmol/L (136-145)
[2019-12-04] MEDS: Aspirin 81 MG Tab.Chew PO SCH (10:10)
[2019-12-04] MEDS: Potassium Chloride 10 MEQ Tab.ER PO SCH (10:10)
[2019-12-04] MEDS: Furosemide 20 MG Tab PO SCH (10:11)
[2019-12-04] MEDS: Cyanocobalamin (Vitamin B12) 1,000 MCG Tab PO SCH (10:11)
[2019-12-04] MEDS: Nicotine 14 MG/24 Hr Patch TRDERM SCH (10:12)
[2019-12-04] MEDS ORDERED: Potassium Chloride 10 MEQ Tab.ER PO ONE (11:00)
--- NOTE | 2019-12-04 11:13 | PCM.DCSUM1 ---
Discharge Summary - Hospital Course Free Text/Narrative:: 69-year-old gentleman presented with the lower extremity edema, diarrhea In the emergency room the patient was noted to have severe hyponatremia,Lower blood pressures Severe hyponatremia This is likely secondary to significant the beer consumption, he has been drinking 12 beers a day Associated with diarrhea sodium improved - no diarrhea since admission treated with IVF Lower extremity edema Likely secondary to low albumin, hypervolemia treated with Lasix resolved cont NATHANAEL stocking History of hypertension The blood pressure has been low Hold Naman and Eliseo History of alcohol abuse We'll follow for potential withdrawal We will give thiamine, folate, multivitamins Dementia at baseline Diagnosis: Stroke: No - Discharge Data Discharge Date: 12/04/19 Discharge Disposition: Home, Self-Care 01 Condition: Good - Referral to Home Health Primary Care Physician: PCP Unobtainable - Discharge Diagnosis/Problem(s) (1) Hypertension SNOMED Code(s): 11222813 ICD Code: I10 - ESSENTIAL (PRIMARY) HYPERTENSION Status: Acute Current Visit: Yes (2) Alcoholism SNOMED Code(s): 8565263 ICD Code: F10.20 - ALCOHOL DEPENDENCE, UNCOMPLICATED Status: Acute Current Visit: No (3) Diarrhea SNOMED Code(s): 88342589 ICD Code: R19.7 - DIARRHEA, UNSPECIFIED Status: Acute Current Visit: No (4) Hyponatremia SNOMED Code(s): 43283920 ICD Code: E87.1 - HYPO-OSMOLALITY AND HYPONATREMIA Status: Acute Current Visit: No - Discharge Plan *PRESCRIPTION DRUG MONITORING PROGRAM REVIEWED*: Not Applicable *COPY OF PRESCRIPTION DRUG MONITORING REPORT IN PATIENT BOUBACAR: Not Applicable Prescriptions/Med Rec: Folic Acid 1 mg PO BEDTIME #14 tablet Multivitamins,Therapeutic [Thera] 1 each PO BEDTIME #30 tablet Nicotine [Habitrol] 14 mg TRDERM DAILY #7 patch Home Medications: Home Meds Aspirin [Wilian Chewable Aspirin] 81 mg PO DAILY 12/02/19 [History] Cyanocobalamin (Vitamin B-12) [B-12] 1,000 mcg PO DAILY 12/02/19 [History] Thiamine [Vitamin B-1] 200 mg PO DAILY 12/02/19 [History] Folic Acid 1 mg PO BEDTIME #14 tablet 12/04/19 [Rx] Multivitamins,Therapeutic [Thera] 1 each PO BEDTIME #30 tablet 12/04/19 [Rx] Nicotine [Habitrol] 14 mg TRDERM DAILY #7 patch 12/04/19 [Rx] Oxygen Therapy Mode: Room Air Forms: ED Department Discharge Referrals: Provider,Unknown [Ordering Only Provider] - (in 3-4 days re: htn, hyponatremia) - Discharge Summary/Plan Comment DC Time >30 min.: No - General Info Date of Service: 12/04/19 Functional Status: Reports: Pain Controlled - Review of Systems General: Reports: Weakness. Denies: Fever Pulmonary: Denies: Shortness of Breath Cardiovascular: Denies: Chest Pain, Edema Neurological: Denies: Confusion - Patient Data Vitals - Most Recent: Last Vital Signs Temp 98.8 F 12/04/19 08:00 Pulse 89 12/04/19 08:00 Resp 20 12/04/19 08:00 BP 82/49 L 12/04/19 08:00 Pulse Ox 95 12/04/19 08:00 Weight - Most Recent: 114 lb 11.2 oz I&O - Last 24 hours: Intake & Output 12/03/19 12/04/19 12/04/19 22:59 06:59 14:59 Intake Total 300 Output Total 350 700 Balance -50 -700 Lab Results - Last 24 hrs: Laboratory Results - last 24 hr 12/04/19 12/04/19 Range/Units 05:40 05:40 WBC 6.1 (5.0-10.0) 10^3/uL RBC 3.68 L (4.6-6.2) 10^6/uL Hgb 11.3 L (14.0-18.0) g/dL Hct 31.9 L (40.0-54.0) % MCV 86.7 (80-100) fL MCH 30.7 (27.0-34.0) pg MCHC 35.4 H (33.0-35.0) g/dL Plt Count 253 (150-450) 10^3/uL Neut % (Auto) 73.1 (42.2-75.2) % Lymph % (Auto) 10.5 L (20.5-50.1) % [place] % (Auto) 15.9 H (2-8) % Eos % (Auto) 0.2 L (1.0-3.0) % Baso % (Auto) 0.3 (0.0-1.0) % Sodium 130 L (136-145) mmol/L Potassium 3.0 L (3.5-5.1) mmol/L Chloride 98 (98-107) mmol/L Carbon Dioxide 25 (21-32) mmol/L Anion Gap 10.0 (7-13) mEq/L BUN 7 (7-18) mg/dL Creatinine 0.94 (0.70-1.30) mg/dL Est Cr Clr Drug Dosing 53.81 mL/min Estimated GFR (MDRD) > 60 Glucose 84 (74-99) mg/dL Calcium 7.4 L (8.5-10.1) mg/dL Med Orders - Current: Current Medications Acetaminophen (Tylenol) 650 mg PO Q4H PRN PRN Reason: Pain (Mild 1-3)/fever Aspirin (Aspirin) 81 mg PO DAILY [facility] Last Admin: 12/04/19 10:10 Dose: 81 mg Cyanocobalamin (Vitamin B12) 1,000 mcg PO DAILY [facility] Last Admin: 12/04/19 10:11 Dose: 1,000 mcg Folic Acid (Folic Acid) 1 mg PO BEDTIME [facility] Last Admin: 12/03/19 21:07 Dose: 1 mg Furosemide (Lasix) 20 mg PO DAILY [facility] Last Admin: 12/04/19 10:11 Dose: 20 mg Heparin Sodium (Porcine) (Heparin Sodium) 5,000 units SUBCUT Q8HR [facility] Last Admin: 12/04/19 05:10 Dose: 5,000 units Lorazepam (Ativan) 0 mg PO TITRATE PRN; Protocol PRN Reason: agitation Lorazepam (Ativan) 0 mg IVPUSH TITRATE PRN; Protocol PRN Reason: agitation Miscellaneous Information (Check Patch) 1 ea TRDERM BEDTIME [facility] Last Admin: 12/03/19 21:08 Dose: 1 ea Multivitamins (Thera) 1 each PO BEDTIME [facility] Last Admin: 12/03/19 21:07 Dose: 1 each Nicotine (Habitrol) 14 mg TRDERM DAILY [facility] Last Admin: 12/04/19 10:12 Dose: 14 mg Ondansetron HCl (Zofran Odt) 4 mg PO Q4H PRN PRN Reason: nausea, able to take PO Last Admin: 12/03/19 16:15 Dose: 4 mg Ondansetron HCl (Zofran) 4 mg IVPUSH Q4H PRN PRN Reason: Nausea/Vomiting Potassium Chloride (Klor-Con 10) 20 meq PO WITHBREAKFAST [facility] Last Admin: 12/04/19 10:10 Dose: 20 meq Sodium Chloride (Saline Flush) 10 ml FLUSH ASDIRECTED PRN PRN Reason: Keep Vein Open Last Admin: 12/04/19 10:14 Dose: 10 ml Thiamine HCl (Vitamin B-1) 200 mg PO BEDTIME [facility] Last Admin: 12/03/19 21:07 Dose: 200 mg Zolpidem Tartrate (Ambien) 5 mg PO BEDTIME PRN PRN Reason: Sleep Last Admin: 12/04/19 00:56 Dose: 5 mg Discontinued Medications Folic Acid (Folic Acid) 1 mg PO BEDTIME [facility] Sodium Chloride (Normal Saline) 250 mls @ 50 mls/hr IV ASDIRECTED [facility] Last Admin: 12/03/19 00:02 Dose: 50 mls/hr Sodium Chloride (Normal Saline) 1,000 mls @ 50 mls/hr IV ASDIRECTED [facility] Last Admin: 12/03/19 06:07 Dose: 50 mls/hr Potassium Chloride (Klor-Con 10) 40 meq PO ONETIME ONE Stop: 12/04/19 11:01 Thiamine HCl (Vitamin B-1) 100 mg PO BEDTIME [facility] Thiamine HCl (Vitamin B-1) 200 mg PO DAILY [facility] - Exam General: Reports: Alert, Oriented Neck: Reports: Supple Lungs: Reports: Clear to Auscultation, Normal Respiratory Effort Cardiovascular: Reports: Regular Rate, Regular Rhythm GI/Abdominal Exam: Normal Bowel Sounds, Soft, Non-Tender Extremities: No Pedal Edema Skin: Reports: Warm, Dry Neurological: Reports: No New Focal Deficit
== END 2019-12-04 13:04 | disposition home or self-care (01) | DRG 641 ==
LOC: DL.ED 19:57 → DL.MS 22:12 → DL.ED 22:15
PROVIDERS: ADMIT Internal Medicine; ATTEND Internal Medicine
DX: E87.1 Hypo-osmolality and hyponatremia (principal); E87.70 Fluid overload, unspecified; F03.90 Unspecified dementia, unspecified severity, without behavioral disturbance, psychotic disturbance, mood disturbance, and anxiety; R19.7 Diarrhea, unspecified; F10.20 Alcohol dependence, uncomplicated; Y90.9 Presence of alcohol in blood, level not specified; F17.210 Nicotine dependence, cigarettes, uncomplicated; H54.7 Unspecified visual loss; I10 Essential (primary) hypertension; K21.9 Gastro-esophageal reflux disease without esophagitis; Z86.010 Personal history of colon polyps; F04 Amnestic disorder due to known physiological condition; Z79.82 Long term (current) use of aspirin; Z79.899 Other long term (current) drug therapy
CPT/HCPCS: 36415; 80048; 80053; 80307; 81001; 82140; 83735; 83880; 84100; 85025; 99284; 99285; A9270-GY; J1644; J7030; J7050

== ENCOUNTER 2019-12-19 00:09 | Emergency (ER) | payer MEDICARE, OTHER ==
[2019-12-19] MEDS ORDERED: Furosemide 40 MG/4 ML VIAL IVPUSH ONE (01:31)
[2019-12-19 01:43] LABS: ANION GAP 14.5 mEq/L (7-13); CHLORIDE,CL 99 mmol/L (98-107); SODIUM,NA 133 mmol/L (136-145)
--- NOTE | 2019-12-19 02:01 | EDM.PDOC ---
ED HPI GENERAL MEDICAL PROBLEM - General Chief Complaint: General Stated Complaint: LEFT WRIST, BOTH LEGS HAVE SWALLON UP Time Seen by Provider: 12/19/19 00:20 Source of Information: Reports: Patient, Family, RN History Limitations: Reports: Altered Mental Status - History of Present Illness INITIAL COMMENTS - FREE TEXT/NARRATIVE: ED with daughter, reports increased swelling to lower legs worse tonight and swelling to left hand. Patient has been c/o pain with walking since increase swelling. Similar 2 weeks ago and sodium low , hospitalized and given lasix. Daughter reports [facility] and told to go to [facility]. No fever or chills. no cough Not noting any SOB. Hx ETOH abuse . Reports 6 beer tonight. States he just sits at kitchen table all day. Smoker 1 pack per day. Hx dementia. Appetite poor. Daughter states if he eats meal will usually vomit it up or have large loose diarrhea stool after. Has tried supplements but gets diarrhea from them. - Related Data Allergies Allergy/AdvReac Type Severity Reaction Status Date / Time No Known Allergies Allergy Verified 12/19/19 00:40 Home Meds: Home Meds Aspirin [Wilian Chewable Aspirin] 81 mg PO DAILY 12/02/19 [History] Cyanocobalamin (Vitamin B-12) [B-12] 1,000 mcg PO DAILY 12/02/19 [History] Thiamine [Vitamin B-1] 200 mg PO DAILY 12/02/19 [History] Folic Acid 1 mg PO BEDTIME #14 tablet 12/04/19 [Rx] Multivitamins,Therapeutic [Thera] 1 each PO BEDTIME #30 tablet 12/04/19 [Rx] Nicotine [Habitrol] 14 mg TRDERM DAILY #7 patch 12/04/19 [Rx] Past Medical History HEENT History: Reports: Impaired Vision Cardiovascular History: Reports: Hypertension Respiratory History: Reports: None Gastrointestinal History: Reports: Chronic Diarrhea, Colon Polyp, GERD Genitourinary History: Reports: None Musculoskeletal History: Reports: None Neurological History: Reports: Other (See Below) Other Neuro History: wernicke-korsakoff syndrome Psychiatric History: Reports: Addiction, Dementia Endocrine/Metabolic History: Reports: None Hematologic History: Reports: None Immunologic History: Reports: None Oncologic (Cancer) History: Reports: None Dermatologic History: Reports: None - Infectious Disease History Infectious Disease History: Reports: Chicken Pox, Measles - Past Surgical History Head Surgeries/Procedures: Reports: None HEENT Surgical History: Reports: None Cardiovascular Surgical History: Reports: None GI Surgical History: Reports: Colonoscopy, EGD Male Surgical History: Reports: None Musculoskeletal Surgical History: Reports: None Social & Family History - Family History Family Medical History: Noncontributory - Tobacco Use Smoking Status *Q: Current Every Day Smoker Years of Tobacco use: 53 Packs/Tins Daily: 1 - Caffeine Use Caffeine Use: Reports: Coffee Caffeine Use Comment: 2 cups daily - Alcohol Use Date of Last Drink: 12/18/19 - Recreational Drug Use Recreational Drug Use: No ED ROS GENERAL - Review of Systems Review Of Systems: Comprehensive ROS is negative, except as noted in HPI. ED EXAM, GENERAL - Physical Exam Exam: See Below Exam Limited By: No Limitations General Appearance: Alert, No Apparent Distress Eye Exam: Bilateral Eye: EOMI Ears: Normal External Exam Nose: Normal Inspection Throat/Mouth: Normal Inspection Head: Atraumatic, Normocephalic Neck: Normal Inspection Respiratory/Chest: No Respiratory Distress, Lungs Clear, Normal Breath Sounds Cardiovascular: Normal Peripheral Pulses, Regular Rate, Rhythm. No: No Edema GI/Abdominal: Normal Bowel Sounds, Soft Extremities: Normal Range of Motion, Pedal Edema, Other (mild swelling to left hand. good cap refill, radial pulse stron. normal temperature, fullmovment and sensation normal color) Neurological: Alert Psychiatric: Flat Affect Skin Exam: Warm, Dry, Pallor, Other (finger and nails tobacco stained. ) Course - Vital Signs Last Recorded V/S: Last Vital Signs Temp 96.7 F L 12/19/19 01:29 Pulse 100 12/19/19 01:29 Resp 18 12/19/19 01:29 BP 124/74 12/19/19 01:29 Pulse Ox 99 12/19/19 01:29 - Orders/Labs/Meds Labs: Laboratory Tests 12/19/19 12/19/19 12/19/19 Range/Units 00:18 00:50 00:50 WBC 6.7 (5.0-10.0) 10^3/uL RBC 4.02 L (4.6-6.2) 10^6/uL Hgb 12.1 L (14.0-18.0) g/dL Hct 35.8 L (40.0-54.0) % MCV 89.1 (80-100) fL MCH 30.1 (27.0-34.0) pg MCHC 33.8 (33.0-35.0) g/dL Plt Count 247 (150-450) 10^3/uL Neut % (Auto) 70.1 (42.2-75.2) % Lymph % (Auto) 11.1 L (20.5-50.1) % Love % (Auto) 18.0 H (2-8) % Eos % (Auto) 0.5 L (1.0-3.0) % Baso % (Auto) 0.3 (0.0-1.0) % PT 11.3 (9.0-12.0) SEC INR 1.2 (0.9-1.2) Sodium (136-145) mmol/L Potassium (3.5-5.1) mmol/L Chloride (98-107) mmol/L Carbon Dioxide (21-32) mmol/L Anion Gap (7-13) mEq/L BUN (7-18) mg/dL Creatinine (0.70-1.30) mg/dL Est Cr Clr Drug Dosing mL/min Estimated GFR (MDRD) BUN/Creatinine Ratio (No establ ref range) Glucose (74-99) mg/dL Calcium (8.5-10.1) mg/dL Magnesium (1.8-2.4) mg/dL Total Bilirubin (0.2-1.0) mg/dL AST (15-37) U/L ALT (16-63) U/L Alkaline Phosphatase (46-116) U/L B-Natriuretic Peptide (0-100) pg/ml Total Protein (6.4-8.2) g/dL Albumin (3.4-5.0) g/dL Globulin Albumin/Globulin Ratio Amylase (25-115) U/L Lipase (73-393) U/L Urine Color Yellow (YELLOW) Urine Appearance Clear (CLEAR) Urine pH 6.0 (5.0-9.0) Ur Specific [place] <= 1.005 (1.005-1.030) Urine Protein Negative (NEGATIVE) Urine Glucose (UA) Negative (NEGATIVE) Urine Ketones Negative (NEGATIVE) Urine Occult Blood Trace-intact H (NEGATIVE) Urine Nitrite Negative (NEGATIVE) Urine Bilirubin Negative (NEGATIVE) Urine Urobilinogen 0.2 (0.2-1.0) mg/dL Ur Leukocyte Esterase Negative (NEGATIVE) Urine RBC 0-5 /HPF Urine WBC 0-5 (0-5/HPF) /HPF Ur Epithelial Cells Few (NOT SEEN) /HPF Urine Bacteria Few (0-FEW/HPF) /HPF Ethyl Alcohol (0) mg/dL 12/19/19 Range/Units 00:50 WBC (5.0-10.0) 10^3/uL RBC (4.6-6.2) 10^6/uL Hgb (14.0-18.0) g/dL Hct (40.0-54.0) % MCV (80-100) fL MCH (27.0-34.0) pg MCHC (33.0-35.0) g/dL Plt Count (150-450) 10^3/uL Neut % (Auto) (42.2-75.2) % Lymph % (Auto) (20.5-50.1) % Love % (Auto) (2-8) % Eos % (Auto) (1.0-3.0) % Baso % (Auto) (0.0-1.0) % PT (9.0-12.0) SEC INR (0.9-1.2) Sodium 133 L (136-145) mmol/L Potassium 3.5 (3.5-5.1) mmol/L Chloride 99 (98-107) mmol/L Carbon Dioxide 23 (21-32) mmol/L Anion Gap 14.5 H (7-13) mEq/L BUN 4 L (7-18) mg/dL Creatinine 0.86 (0.70-1.30) mg/dL Est Cr Clr Drug Dosing 60.30 mL/min Estimated GFR (MDRD) > 60 BUN/Creatinine Ratio 4.7 (No establ ref range) Glucose 90 (74-99) mg/dL Calcium 7.6 L (8.5-10.1) mg/dL Magnesium 1.9 (1.8-2.4) mg/dL Total Bilirubin 0.5 (0.2-1.0) mg/dL AST 38 H (15-37) U/L ALT 32 (16-63) U/L Alkaline Phosphatase 121 H (46-116) U/L B-Natriuretic Peptide 170 H (0-100) pg/ml Total Protein 5.9 L (6.4-8.2) g/dL Albumin 2.1 L (3.4-5.0) g/dL Globulin 3.8 Albumin/Globulin Ratio 0.55 Amylase 26 (25-115) U/L Lipase 172 (73-393) U/L Urine Color (YELLOW) Urine Appearance (CLEAR) Urine pH (5.0-9.0) Ur Specific [place] (1.005-1.030) Urine Protein (NEGATIVE) Urine Glucose (UA) (NEGATIVE) Urine Ketones (NEGATIVE) Urine Occult Blood (NEGATIVE) Urine Nitrite (NEGATIVE) Urine Bilirubin (NEGATIVE) Urine Urobilinogen (0.2-1.0) mg/dL Ur Leukocyte Esterase (NEGATIVE) Urine RBC /HPF Urine WBC (0-5/HPF) /HPF Ur Epithelial Cells (NOT SEEN) /HPF Urine Bacteria (0-FEW/HPF) /HPF Ethyl Alcohol 52 (0) mg/dL Meds: Medications Discontinued Medications Generic Name Dose Route Start Last Admin Trade Name Kiki PRN Reason Stop Dose Admin Furosemide 20 mg 12/19/19 01:31 12/19/19 01:35 Lasix IVPUSH 12/19/19 01:32 20 mg NOW ONE Administration - Re-Assessments/Exams Free Text/Narrative Re-Assessment/Exam: 12/19/19 01:56 2-3 plus doughy edema bilateral lower extremities mild swelling left hand, Departure - Departure Time of Disposition: 02:01 Disposition: Home, Self-Care 01 Condition: Good Clinical Impression: Alcohol abuse Edema Qualifiers: Edema type: due to malnutrition Malnutrition edema type: unspecified malnutrition type Qualified Code(s): E43 - Unspecified severe protein-calorie malnutrition - Discharge Information *PRESCRIPTION DRUG MONITORING PROGRAM REVIEWED*: No *COPY OF PRESCRIPTION DRUG MONITORING REPORT IN PATIENT BOUBACAR: No Instructions: Edema, [id number] Forms: ED Department Discharge Additional Instructions: increase caloric intake, smaller amounts more frequently limit alcohol use follow up with PCP next week lasix 20mg daily x 2 days potassium 20mg daily x 2 days, take with food elevate extremities above heart twice daily for 30 minutes urgent follow up if SOB or dizziness. Sepsis Event Note - Evaluation Sepsis Screening Result: No Definite Risk - Focused Exam Vital Signs: Vital Signs Temp Pulse Resp BP Pulse Ox 12/19/19 01:29 96.7 F L 100 18 124/74 99 12/19/19 00:20 96.1 F L 107 H 19 128/60 98 Date Exam was Performed: 12/19/19 Time Exam was Performed: 04:27
== END 2019-12-19 02:15 | disposition home or self-care (01) ==
LOC: DL.ED 00:09
DX: E43 Unspecified severe protein-calorie malnutrition (principal); F10.10 Alcohol abuse, uncomplicated; Y90.2 Blood alcohol level of 40-59 mg/100 ml; F17.210 Nicotine dependence, cigarettes, uncomplicated; Z79.82 Long term (current) use of aspirin; Z79.899 Other long term (current) drug therapy
CPT/HCPCS: 36415; 80053; 80307; 81001; 82150; 83690; 83735; 83880; 85025; 85610; 96374; 99283; J1940

== ENCOUNTER 2020-01-27 22:47 | Emergency (ER) | payer OTHER, MEDICARE ==
[2020-01-27 23:41] LABS: ANION GAP 14.8 mEq/L (7-13); CHLORIDE,CL 93 mmol/L (98-107); SODIUM,NA 125 mmol/L (136-145)
--- NOTE | 2020-01-27 23:45 | EDM.PDOC ---
ED HPI GENERAL MEDICAL PROBLEM - General Chief Complaint: General Stated Complaint: POSSIBLE FELL, NEEDS TO BE CHECKED OUT Time Seen by Provider: 01/27/20 22:55 Source of Information: Reports: Patient, Family, RN History Limitations: Reports: Altered Mental Status - History of Present Illness INITIAL COMMENTS - FREE TEXT/NARRATIVE: ED with c/o confusion worse than usual, daughter states patient did not recognize her. Concern for fall at home around 6 pm tonight, Daughter thought left cheek appeared swollen. Patient denies fall. lower legs hurt. Reports chills today and having to cover up with blanket, smoker, some SOB, unsure if cough. Edmits daily alcohol use 6-12 beers per day, Unsure how much today. Lives with sister, daughter comes in daily to assist with ADL's. Abdomen CT scheduled for next day to rule out stomach cancer due to weight loss. Bilateral Leg Pain Score (Numeric/FACES): 3 - Related Data Allergies Allergy/AdvReac Type Severity Reaction Status Date / Time No Known Allergies Allergy Verified 01/28/20 00:05 Home Meds: Home Meds Cyanocobalamin (Vitamin B-12) [B-12] 1,000 mcg PO DAILY 12/02/19 [History] Thiamine [Vitamin B-1] 200 mg PO DAILY 12/02/19 [History] Folic Acid 1 mg PO BEDTIME #14 tablet 12/04/19 [Rx] Multivitamins,Therapeutic [Thera] 1 each PO BEDTIME #30 tablet 12/04/19 [Rx] Past Medical History HEENT History: Reports: Impaired Vision Cardiovascular History: Reports: Hypertension Respiratory History: Reports: None Gastrointestinal History: Reports: Chronic Diarrhea, Colon Polyp, GERD Genitourinary History: Reports: None Musculoskeletal History: Reports: None Neurological History: Reports: Other (See Below) Other Neuro History: wernicke-korsakoff syndrome Psychiatric History: Reports: Addiction, Dementia Endocrine/Metabolic History: Reports: None Hematologic History: Reports: None Immunologic History: Reports: None Oncologic (Cancer) History: Reports: None Dermatologic History: Reports: None - Infectious Disease History Infectious Disease History: Reports: Chicken Pox, Measles - Past Surgical History Head Surgeries/Procedures: Reports: None HEENT Surgical History: Reports: None Cardiovascular Surgical History: Reports: None GI Surgical History: Reports: Colonoscopy, EGD Male Surgical History: Reports: None Musculoskeletal Surgical History: Reports: None Social & Family History - Family History Family Medical History: Noncontributory - Tobacco Use Smoking Status *Q: Current Every Day Smoker Years of Tobacco use: 52 Packs/Tins Daily: 1.5 - Caffeine Use Caffeine Use: Reports: Coffee Caffeine Use Comment: 2 cups daily - Alcohol Use Days Per Week of Alcohol Use: 7 Number of Drinks Per Day: 6 Total Drinks Per Week: 42 - Recreational Drug Use Recreational Drug Use: No ED ROS GENERAL - Review of Systems Review Of Systems: See Below Constitutional: Reports: Chills, Weight Loss HEENT: Reports: No Symptoms Respiratory: Reports: Shortness of Breath, Other (smoker) Cardiovascular: Denies: Chest Pain, Lightheadedness Musculoskeletal: Reports: Leg Pain (bilateral lowe) Neurological: Reports: Confusion, Other (daughter questions if fall as items scattered.). Denies: Headache, Trouble Speaking ED EXAM, GENERAL - Physical Exam Exam: See Below Exam Limited By: No Limitations General Appearance: Alert, No Apparent Distress, Cachetic Eye Exam: Left Eye: Other (greenish/ yellow thick drainage left eye, hordoleum upper lid), Bilateral Eye: EOMI (bilateral cataracts) Ears: Normal External Exam Nose: Normal Inspection Throat/Mouth: Normal Inspection, Normal Oropharynx Neck: Normal Inspection Respiratory/Chest: No Respiratory Distress Cardiovascular: Normal Peripheral Pulses, Regular Rate, Rhythm GI/Abdominal: Normal Bowel Sounds, Soft, Non-Tender Extremities: Pedal Edema (3+ bilateral) Neurological: Alert, Memory Loss Recent Events, Other (generalized poor conditionig, equal strength bilateral. speech clear. ). No: Oriented ( confused date time, reports as fall. ), Slow to Respond Psychiatric: Normal Affect Skin Exam: Warm, Dry, Intact, Ecchymosis (petechail bruising 1cm left lower anterior rib, non tender. ), Rash (upper back, ) Course - Vital Signs Last Recorded V/S: Last Vital Signs Temp 98.6 F 01/27/20 22:54 Pulse 106 H 01/27/20 22:54 Resp 17 01/27/20 22:54 BP 149/75 H 01/27/20 22:54 Pulse Ox 93 L 01/27/20 22:54 - Orders/Labs/Meds Orders: Active Orders 24 hr Category Date Time Status EKG Documentation Completion [RC] AM Care 01/27/20 22:57 Active Chest 1V Frontal [CR] Urgent Exams 01/27/20 23:06 Taken CULTURE BLOOD [BC] Stat Lab 01/27/20 23:08 Received CULTURE BLOOD [BC] Stat Lab 01/27/20 23:18 Received Blood Culture x2 Reflex Set [OM.PC] Stat Oth 01/27/20 22:57 Ordered Labs: Laboratory Tests 01/27/20 01/27/20 01/27/20 Range/Units 23:08 23:08 23:08 WBC 9.4 (5.0-10.0) 10^3/uL RBC 4.13 L (4.6-6.2) 10^6/uL Hgb 12.2 L (14.0-18.0) g/dL Hct 36.6 L (40.0-54.0) % MCV 88.6 (80-100) fL MCH 29.5 (27.0-34.0) pg MCHC 33.3 (33.0-35.0) g/dL Plt Count 218 (150-450) 10^3/uL Neut % (Auto) 74.9 (42.2-75.2) % Lymph % (Auto) 6.7 L (20.5-50.1) % [place] % (Auto) 17.8 H (2-8) % Eos % (Auto) 0.3 L (1.0-3.0) % Baso % (Auto) 0.3 (0.0-1.0) % Sodium 125 L (136-145) mmol/L Potassium 3.8 (3.5-5.1) mmol/L Chloride 93 L (98-107) mmol/L Carbon Dioxide 21 (21-32) mmol/L Anion Gap 14.8 H (7-13) mEq/L BUN 5 L (7-18) mg/dL Creatinine 0.91 (0.70-1.30) mg/dL Est Cr Clr Drug Dosing 59.03 mL/min Estimated GFR (MDRD) > 60 BUN/Creatinine Ratio 5.5 (No establ ref range) Glucose 90 (74-99) mg/dL Lactic Acid 1.5 (0.4-2.0) mmol/L Calcium 7.7 L (8.5-10.1) mg/dL Total Bilirubin 0.5 (0.2-1.0) mg/dL AST 31 (15-37) U/L ALT 26 (16-63) U/L Alkaline Phosphatase 124 H (46-116) U/L Troponin I 0.132 H* (0.000-0.056) ng/mL B-Natriuretic Peptide 159 H (0-100) pg/ml Total Protein 5.7 L (6.4-8.2) g/dL Albumin 1.8 L (3.4-5.0) g/dL Globulin 3.9 Albumin/Globulin Ratio 0.46 Urine Color (YELLOW) Urine Appearance (CLEAR) Urine pH (5.0-9.0) Ur Specific [place] (1.005-1.030) Urine Protein (NEGATIVE) Urine Glucose (UA) (NEGATIVE) Urine Ketones (NEGATIVE) Urine Occult Blood (NEGATIVE) Urine Nitrite (NEGATIVE) Urine Bilirubin (NEGATIVE) Urine Urobilinogen (0.2-1.0) mg/dL Ur Leukocyte Esterase (NEGATIVE) Ethyl Alcohol (0) mg/dL SARS-CoV-2 RNA (RT-PCR) (NEGATIVE) 01/27/20 01/27/20 01/28/20 Range/Units 23:08 23:15 00:11 WBC (5.0-10.0) 10^3/uL RBC (4.6-6.2) 10^6/uL Hgb (14.0-18.0) g/dL Hct (40.0-54.0) % MCV (80-100) fL MCH (27.0-34.0) pg MCHC (33.0-35.0) g/dL Plt Count (150-450) 10^3/uL Neut % (Auto) (42.2-75.2) % Lymph % (Auto) (20.5-50.1) % [place] % (Auto) (2-8) % Eos % (Auto) (1.0-3.0) % Baso % (Auto) (0.0-1.0) % Sodium (136-145) mmol/L Potassium (3.5-5.1) mmol/L Chloride (98-107) mmol/L Carbon Dioxide (21-32) mmol/L Anion Gap (7-13) mEq/L BUN (7-18) mg/dL Creatinine (0.70-1.30) mg/dL Est Cr Clr Drug Dosing mL/min Estimated GFR (MDRD) BUN/Creatinine Ratio (No establ ref range) Glucose (74-99) mg/dL Lactic Acid (0.4-2.0) mmol/L Calcium (8.5-10.1) mg/dL Total Bilirubin (0.2-1.0) mg/dL AST (15-37) U/L ALT (16-63) U/L Alkaline Phosphatase (46-116) U/L Troponin I (0.000-0.056) ng/mL B-Natriuretic Peptide (0-100) pg/ml Total Protein (6.4-8.2) g/dL Albumin (3.4-5.0) g/dL Globulin Albumin/Globulin Ratio Urine Color Yellow (YELLOW) Urine Appearance Clear (CLEAR) Urine pH 6.5 (5.0-9.0) Ur Specific [place] 1.010 (1.005-1.030) Urine Protein Negative (NEGATIVE) Urine Glucose (UA) Negative (NEGATIVE) Urine Ketones Negative (NEGATIVE) Urine Occult Blood Negative (NEGATIVE) Urine Nitrite Negative (NEGATIVE) Urine Bilirubin Negative (NEGATIVE) Urine Urobilinogen 0.2 (0.2-1.0) mg/dL Ur Leukocyte Esterase Negative (NEGATIVE) Ethyl Alcohol 79 (0) mg/dL SARS-CoV-2 RNA (RT-PCR) Negative (NEGATIVE) - Re-Assessments/Exams Free Text/Narrative Re-Assessment/Exam: Facility CT scanner not working, Potential fall with increased confusion Tx to Alt for further evaluation via [facility] . Dr Alexis accepting. Departure - Departure Time of Disposition: 00:25 Disposition: DC/Tfer to Acute Hospital 02 Condition: Undetermined Clinical Impression: Confusion, Hyponatremia, Elevated troponin, Alcoholism Edema Qualifiers: Edema type: due to malnutrition Malnutrition edema type: unspecified malnutrition type Qualified Code(s): E43 - Unspecified severe protein-calorie malnutrition - Discharge Information Forms: ED Department Discharge Sepsis Event Note - Evaluation Sepsis Screening Result: No Definite Risk - Focused Exam Vital Signs: Vital Signs Temp Pulse Resp BP Pulse Ox 01/27/20 22:54 98.6 F 106 H 17 149/75 H 93 L Date Exam was Performed: 01/28/20 Time Exam was Performed: 04:44 - My Orders Last 24 Hours: My Active Orders 01/27/20 22:57 EKG Documentation Completion [RC] AM Blood Culture x2 Reflex Set [OM.PC] Stat 01/27/20 23:06 Chest 1V Frontal [CR] Urgent 01/27/20 23:08 CULTURE BLOOD [BC] Stat 01/27/20 23:18 CULTURE BLOOD [BC] Stat - Assessment/Plan Last 24 Hours: My Active Orders 01/27/20 22:57 EKG Documentation Completion [RC] AM Blood Culture x2 Reflex Set [OM.PC] Stat 01/27/20 23:06 Chest 1V Frontal [CR] Urgent 01/27/20 23:08 CULTURE BLOOD [BC] Stat 01/27/20 23:18 CULTURE BLOOD [BC] Stat
== END 2020-01-28 00:24 ==
LOC: DL.ED 22:47
DX: E87.1 Hypo-osmolality and hyponatremia (principal); R79.89 Other specified abnormal findings of blood chemistry; E43 Unspecified severe protein-calorie malnutrition; F10.20 Alcohol dependence, uncomplicated; F17.210 Nicotine dependence, cigarettes, uncomplicated; Y90.3 Blood alcohol level of 60-79 mg/100 ml
CPT/HCPCS: 36415; 71045; 80053; 80307; 81003; 83605; 83880; 84484; 85025; 87040; 93005; 99284; 99285-25; U0002

== ENCOUNTER 2020-02-12 14:51 | Emergency (ER) | payer MEDICARE, MEDICAID ==
--- NOTE | 2020-02-12 15:36 | EDM.PDOC ---
ED HPI GENERAL MEDICAL PROBLEM - General Chief Complaint: General Stated Complaint: AMBULANCE Time Seen by Provider: 02/12/20 15:25 Source of Information: Reports: Patient History Limitations: Reports: No Limitations - History of Present Illness INITIAL COMMENTS - FREE TEXT/NARRATIVE: This 69 yo male patient was brought to the ED by [facility] due to increased weakness , shortness of breath and abdominal distention. The patient reports he has noticed the increased weakness and shortness of breath getting worse over the past 3-4 days. The patient reports the abdominal distention has been getting worse over the past month. The patient admits to drinking 8-10 beers per day with his last drink being yesterday afternoon. The patient also admits to smoking cigarettes. The patient reports he would like to stop drinking due to the cost, but stated that he would not have anything else to do. EMS reports they have been called to the patient's residence in the past, but the patient normally refuses transport. The patient reports he has been told that his drinking is causing liver problems in the past, but the patient has not quit drinking. Duration: Day(s):, Constant, Getting Worse Location: Reports: Chest, Abdomen Quality: Reports: Other Severity: Moderate Improves with: Reports: None Worsens with: Reports: None Context: Reports: Other Associated Symptoms: Reports: Cough, Shortness of Breath, Weakness buttock Pain Score (Numeric/FACES): 7 - Related Data Allergies Allergy/AdvReac Type Severity Reaction Status Date / Time No Known Allergies Allergy Verified 02/12/20 15:12 Home Meds: Home Meds Cyanocobalamin (Vitamin B-12) [B-12] 1,000 mcg PO DAILY 12/02/19 [History] Thiamine [Vitamin B-1] 200 mg PO DAILY 12/02/19 [History] Folic Acid 1 mg PO BEDTIME #14 tablet 12/04/19 [Rx] Multivitamins,Therapeutic [Thera] 1 each PO BEDTIME #30 tablet 12/04/19 [Rx] Doxazosin Mesylate [Cardura XL] 4 mg PO BEDTIME 02/12/20 [History] Famotidine 20 mg PO DAILY 02/12/20 [History] amLODIPine [Norvasc] 10 mg PO DAILY 02/12/20 [History] Past Medical History HEENT History: Reports: Impaired Vision Cardiovascular History: Reports: Hypertension Respiratory History: Reports: None Gastrointestinal History: Reports: Chronic Diarrhea, Colon Polyp, GERD Genitourinary History: Reports: None Musculoskeletal History: Reports: None Neurological History: Reports: Other (See Below) Other Neuro History: wernicke-korsakoff syndrome Psychiatric History: Reports: Addiction, Dementia Endocrine/Metabolic History: Reports: None Hematologic History: Reports: None Immunologic History: Reports: None Oncologic (Cancer) History: Reports: None Dermatologic History: Reports: None - Infectious Disease History Infectious Disease History: Reports: Chicken Pox, Measles - Past Surgical History Head Surgeries/Procedures: Reports: None HEENT Surgical History: Reports: None Cardiovascular Surgical History: Reports: None GI Surgical History: Reports: Colonoscopy, EGD Male Surgical History: Reports: None Musculoskeletal Surgical History: Reports: None Social & Family History - Family History Family Medical History: Noncontributory - Tobacco Use Smoking Status *Q: Current Every Day Smoker Years of Tobacco use: 60 Packs/Tins Daily: 1 Second Hand Smoke Exposure: No - Caffeine Use Caffeine Use: Reports: Coffee Caffeine Use Comment: 2 cups daily - Alcohol Use Days Per Week of Alcohol Use: 7 Number of Drinks Per Day: 10 Total Drinks Per Week: 70 - Recreational Drug Use Recreational Drug Use: No ED ROS GENERAL - Review of Systems Review Of Systems: Comprehensive ROS is negative, except as noted in HPI. ED EXAM, GENERAL - Physical Exam Exam: See Below Exam Limited By: No Limitations General Appearance: Alert, WD/WN, Moderate Distress Eye Exam: Bilateral Eye: EOMI, Normal Inspection, PERRL Ears: Normal External Exam, Normal Canal, Hearing Grossly Normal, Normal TMs Nose: Normal Inspection, Normal Mucosa, No Blood Throat/Mouth: Normal Lips, Other (dental decay, transudate in posterior pharynx) Head: Atraumatic, Normocephalic Neck: Normal Inspection, Supple, Non-Tender, Full Range of Motion Respiratory/Chest: No Accessory Muscle Use, Chest Non-Tender, Decreased Breath Sounds (diffuse) Cardiovascular: Normal Peripheral Pulses, Regular Rate, Rhythm, No Edema, No Gallop, No JVD, No Murmur, No Rub GI/Abdominal: Normal Bowel Sounds, No Abnormal Bruit, No Mass, Pelvis Stable, Distended (Male) Exam: Deferred Rectal (Males) Exam: Deferred Back Exam: Normal Inspection, Full Range of Motion, NT Extremities: Normal Inspection, Normal Range of Motion, Non-Tender, Normal Capillary Refill, No Pedal Edema Neurological: Alert, Oriented, CN II-XII Intact, Normal Cognition, Normal Gait, Normal Reflexes, No Motor/Sensory Deficits Psychiatric: Normal Affect, Normal Mood Skin Exam: Warm, Dry, Intact, Normal Color, No Rash Lymphatic: No Adenopathy Course - Vital Signs Last Recorded V/S: Last Vital Signs Temp 36.6 C 02/12/20 15:06 Pulse 114 H 02/12/20 15:06 Resp 20 02/12/20 15:06 BP 122/68 02/12/20 15:06 Pulse Ox 98 02/12/20 15:06 - Orders/Labs/Meds Orders: Active Orders 24 hr Category Date Time Status EKG Documentation Completion [RC] STAT Care 02/12/20 15:28 Ordered CORONAVIRUS COVID-19 PCR [facility] Urgent Lab 02/12/20 16:28 Ordered CULTURE BLOOD [BC] Stat Lab 02/12/20 15:28 Ordered CULTURE URINE [RM] Stat Lab 02/12/20 16:18 Received Labs: Laboratory Tests 02/12/20 02/12/20 02/12/20 Range/Units 15:50 15:50 15:50 WBC 6.2 (5.0-10.0) 10^3/uL RBC 4.17 L (4.6-6.2) 10^6/uL Hgb 12.5 L (14.0-18.0) g/dL Hct 36.4 L (40.0-54.0) % MCV 87.3 (80-100) fL MCH 30.0 (27.0-34.0) pg MCHC 34.3 (33.0-35.0) g/dL Plt Count 216 (150-450) 10^3/uL Neut % (Auto) 86.8 H (42.2-75.2) % Lymph % (Auto) 3.4 L (20.5-50.1) % Rogers % (Auto) 9.3 H (2-8) % Eos % (Auto) 0.2 L (1.0-3.0) % Baso % (Auto) 0.3 (0.0-1.0) % PT 12.0 (9.0-12.0) SEC INR 1.3 H (0.9-1.2) Sodium 128 L (136-145) mmol/L Potassium 4.3 (3.5-5.1) mmol/L Chloride 98 (98-107) mmol/L Carbon Dioxide 25 (21-32) mmol/L Anion Gap 9.3 (7-13) mEq/L BUN 12 (7-18) mg/dL Creatinine 1.17 (0.70-1.30) mg/dL Est Cr Clr Drug Dosing 48.55 mL/min Estimated GFR (MDRD) > 60 BUN/Creatinine Ratio 10.3 (No establ ref range) Glucose 111 H (74-99) mg/dL Lactic Acid (0.4-2.0) mmol/L Calcium 7.9 L (8.5-10.1) mg/dL Magnesium 2.1 (1.8-2.4) mg/dL Total Bilirubin 0.5 (0.2-1.0) mg/dL AST 26 (15-37) U/L ALT 24 (16-63) U/L Alkaline Phosphatase 101 (46-116) U/L Ammonia (11-32) umol/L Troponin I 0.136 H* (0.000-0.056) ng/mL B-Natriuretic Peptide 240 H (0-100) pg/ml Total Protein 5.4 L (6.4-8.2) g/dL Albumin 1.8 L (3.4-5.0) g/dL Globulin 3.6 Albumin/Globulin Ratio 0.50 Amylase 29 (25-115) U/L Lipase 198 (73-393) U/L Urine Color (YELLOW) Urine Appearance (CLEAR) Urine pH (5.0-9.0) Ur Specific [place] (1.005-1.030) Urine Protein (NEGATIVE) Urine Glucose (UA) (NEGATIVE) Urine Ketones (NEGATIVE) Urine Occult Blood (NEGATIVE) Urine Nitrite (NEGATIVE) Urine Bilirubin (NEGATIVE) Urine Urobilinogen (0.2-1.0) mg/dL Ur Leukocyte Esterase (NEGATIVE) Urine RBC /HPF Urine WBC (0-5/HPF) /HPF Ur Epithelial Cells (NOT SEEN) /HPF Calcium Oxalate Crystal (NOT SEEN) /HPF Amorphous Sediment (NOT SEEN) /HPF Urine Bacteria (0-FEW/HPF) /HPF Salicylates (2.8-20(Therapeutic)) mg/dL Urine Opiates Screen (NEGATIVE) Ur Oxycodone Screen (NEGATIVE) Urine Methadone Screen (NEGATIVE) Acetaminophen 3 L (10-30 (Therapeutic)) ug/mL Ur Barbiturates Screen (NEGATIVE) U Tricyclic Antidepress (NEGATIVE) Ur Phencyclidine Scrn (NEGATIVE) Ur Amphetamine Screen (NEGATIVE) U Methamphetamines Scrn (NEGATIVE) Urine MDMA Screen (NEGATIVE) U Benzodiazepines Scrn (NEGATIVE) Urine Cocaine Screen (NEGATIVE) U Marijuana (THC) Screen (NEGATIVE) Ethyl Alcohol < 3 (0) mg/dL 02/12/20 02/12/20 02/12/20 Range/Units 15:50 15:50 15:50 WBC (5.0-10.0) 10^3/uL RBC (4.6-6.2) 10^6/uL Hgb (14.0-18.0) g/dL Hct (40.0-54.0) % MCV (80-100) fL MCH (27.0-34.0) pg MCHC (33.0-35.0) g/dL Plt Count (150-450) 10^3/uL Neut % (Auto) (42.2-75.2) % Lymph % (Auto) (20.5-50.1) % Rogers % (Auto) (2-8) % Eos % (Auto) (1.0-3.0) % Baso % (Auto) (0.0-1.0) % PT (9.0-12.0) SEC INR (0.9-1.2) Sodium (136-145) mmol/L Potassium (3.5-5.1) mmol/L Chloride (98-107) mmol/L Carbon Dioxide (21-32) mmol/L Anion Gap (7-13) mEq/L BUN (7-18) mg/dL Creatinine (0.70-1.30) mg/dL Est Cr Clr Drug Dosing mL/min Estimated GFR (MDRD) BUN/Creatinine Ratio (No establ ref range) Glucose (74-99) mg/dL Lactic Acid 0.8 (0.4-2.0) mmol/L Calcium (8.5-10.1) mg/dL Magnesium (1.8-2.4) mg/dL Total Bilirubin (0.2-1.0) mg/dL AST (15-37) U/L ALT (16-63) U/L Alkaline Phosphatase (46-116) U/L Ammonia < 10 L (11-32) umol/L Troponin I (0.000-0.056) ng/mL B-Natriuretic Peptide (0-100) pg/ml Total Protein (6.4-8.2) g/dL Albumin (3.4-5.0) g/dL Globulin Albumin/Globulin Ratio Amylase (25-115) U/L Lipase (73-393) U/L Urine Color (YELLOW) Urine Appearance (CLEAR) Urine pH (5.0-9.0) Ur Specific [place] (1.005-1.030) Urine Protein (NEGATIVE) Urine Glucose (UA) (NEGATIVE) Urine Ketones (NEGATIVE) Urine Occult Blood (NEGATIVE) Urine Nitrite (NEGATIVE) Urine Bilirubin (NEGATIVE) Urine Urobilinogen (0.2-1.0) mg/dL Ur Leukocyte Esterase (NEGATIVE) Urine RBC /HPF Urine WBC (0-5/HPF) /HPF Ur Epithelial Cells (NOT SEEN) /HPF Calcium Oxalate Crystal (NOT SEEN) /HPF Amorphous Sediment (NOT SEEN) /HPF Urine Bacteria (0-FEW/HPF) /HPF Salicylates 3.4 (2.8-20(Therapeutic)) mg/dL Urine Opiates Screen (NEGATIVE) Ur Oxycodone Screen (NEGATIVE) Urine Methadone Screen (NEGATIVE) Acetaminophen (10-30 (Therapeutic)) ug/mL Ur Barbiturates Screen (NEGATIVE) U Tricyclic Antidepress (NEGATIVE) Ur Phencyclidine Scrn (NEGATIVE) Ur Amphetamine Screen (NEGATIVE) U Methamphetamines Scrn (NEGATIVE) Urine MDMA Screen (NEGATIVE) U Benzodiazepines Scrn (NEGATIVE) Urine Cocaine Screen (NEGATIVE) U Marijuana (THC) Screen (NEGATIVE) Ethyl Alcohol (0) mg/dL 02/12/20 02/12/20 Range/Units 16:18 16:18 WBC (5.0-10.0) 10^3/uL RBC (4.6-6.2) 10^6/uL Hgb (14.0-18.0) g/dL Hct (40.0-54.0) % MCV (80-100) fL MCH (27.0-34.0) pg MCHC (33.0-35.0) g/dL Plt Count (150-450) 10^3/uL Neut % (Auto) (42.2-75.2) % Lymph % (Auto) (20.5-50.1) % Rogers % (Auto) (2-8) % Eos % (Auto) (1.0-3.0) % Baso % (Auto) (0.0-1.0) % PT (9.0-12.0) SEC INR (0.9-1.2) Sodium (136-145) mmol/L Potassium (3.5-5.1) mmol/L Chloride (98-107) mmol/L Carbon Dioxide (21-32) mmol/L Anion Gap (7-13) mEq/L BUN (7-18) mg/dL Creatinine (0.70-1.30) mg/dL Est Cr Clr Drug Dosing mL/min Estimated GFR (MDRD) BUN/Creatinine Ratio (No establ ref range) Glucose (74-99) mg/dL Lactic Acid (0.4-2.0) mmol/L Calcium (8.5-10.1) mg/dL Magnesium (1.8-2.4) mg/dL Total Bilirubin (0.2-1.0) mg/dL AST (15-37) U/L ALT (16-63) U/L Alkaline Phosphatase (46-116) U/L Ammonia (11-32) umol/L Troponin I (0.000-0.056) ng/mL B-Natriuretic Peptide (0-100) pg/ml Total Protein (6.4-8.2) g/dL Albumin (3.4-5.0) g/dL Globulin Albumin/Globulin Ratio Amylase (25-115) U/L Lipase (73-393) U/L Urine Color Yellow (YELLOW) Urine Appearance Clear (CLEAR) Urine pH 6.5 (5.0-9.0) Ur Specific [place] 1.020 (1.005-1.030) Urine Protein Negative (NEGATIVE) Urine Glucose (UA) Negative (NEGATIVE) Urine Ketones Negative (NEGATIVE) Urine Occult Blood Negative (NEGATIVE) Urine Nitrite Negative (NEGATIVE) Urine Bilirubin Negative (NEGATIVE) Urine Urobilinogen 0.2 (0.2-1.0) mg/dL Ur Leukocyte Esterase Trace H (NEGATIVE) Urine RBC 0-5 /HPF Urine WBC 0-5 (0-5/HPF) /HPF Ur Epithelial Cells Few (NOT SEEN) /HPF Calcium Oxalate Crystal Few H (NOT SEEN) /HPF Amorphous Sediment Few (NOT SEEN) /HPF Urine Bacteria Few (0-FEW/HPF) /HPF Salicylates (2.8-20(Therapeutic)) mg/dL Urine Opiates Screen Negative (NEGATIVE) Ur Oxycodone Screen Negative (NEGATIVE) Urine Methadone Screen Negative (NEGATIVE) Acetaminophen (10-30 (Therapeutic)) ug/mL Ur Barbiturates Screen Negative (NEGATIVE) U Tricyclic Antidepress Negative (NEGATIVE) Ur Phencyclidine Scrn Negative (NEGATIVE) Ur Amphetamine Screen Negative (NEGATIVE) U Methamphetamines Scrn Negative (NEGATIVE) Urine MDMA Screen Negative (NEGATIVE) U Benzodiazepines Scrn Negative (NEGATIVE) Urine Cocaine Screen Negative (NEGATIVE) U Marijuana (THC) Screen Negative (NEGATIVE) Ethyl Alcohol (0) mg/dL Meds: Medications Discontinued Medications Generic Name Dose Route Start Last Admin Trade Name Freq PRN Reason Stop Dose Admin Aspirin 324 mg 02/12/20 16:39 02/12/20 16:43 Aspirin PO 02/12/20 16:40 324 mg ONETIME ONE Administration Departure - Departure Time of Disposition: 17:26 Disposition: DC/Tfer to [facility] 02 Condition: Fair Clinical Impression: Elevated troponin level - Discharge Information *PRESCRIPTION DRUG MONITORING PROGRAM REVIEWED*: Not Applicable *COPY OF PRESCRIPTION DRUG MONITORING REPORT IN PATIENT BOUBACAR: Not Applicable Forms: Interfacility Transfer EMTALA Care Plan Goals: Discussed the patient's history, examination, lab, EKG, x-ray and treatments with Dr. Mark. Dr. Mark accepted the patient for continued evaluation and management as an inpatient at [facility] in [place]. The patient was transported by [facility]. Sepsis Event Note - Evaluation Sepsis Screening Result: No Definite Risk - Focused Exam Vital Signs: Vital Signs Temp Pulse Resp BP Pulse Ox 02/12/20 15:06 36.6 C 114 H 20 122/68 98 Date Exam was Performed: 02/12/20 Time Exam was Performed: 17:03 - My Orders Last 24 Hours: My Active Orders 02/12/20 15:28 EKG Documentation Completion [RC] STAT CULTURE BLOOD [BC] Stat 02/12/20 16:18 CULTURE URINE [RM] Stat 02/12/20 16:28 CORONAVIRUS COVID-19 PCR PHL Urgent - Assessment/Plan Last 24 Hours: My Active Orders 02/12/20 15:28 EKG Documentation Completion [RC] STAT CULTURE BLOOD [BC] Stat 02/12/20 16:18 CULTURE URINE [RM] Stat 02/12/20 16:28 CORONAVIRUS COVID-19 PCR PHL Urgent
[2020-02-12 16:20] LABS: ACETAMINOPHEN 3 ug/mL (10-30 (Therapeutic)); ANION GAP 9.3 mEq/L (7-13); CHLORIDE,CL 98 mmol/L (98-107); SODIUM,NA 128 mmol/L (136-145)
--- NOTE | 2020-02-12 16:23 | CR ---
EXAMINATION: Chest 2V SEX: Male AGE: 69 years CLINICAL HISTORY: 69-year-old male emergency department complaining of cough and shortness of breath (SOB). INTERPRETATION: Abnormal. 1. Dependent new pleural effusions accumulated in the interval since previous CXR 27 Jan 2020 (particularly, 08 May 2019). 2. Borderline cardiomegaly and relative pulmonary vascular congestion bilaterally since AP comparison CXR 27 jan 2020. 3. No lung mass or hilar lymphadenopathy. 4. No new focal lobar infiltrate or atelectasis. (Fluid in the fissure on the left) 5. No pneumothorax or pneumomediastinum. No foreign bodies in the midline tracheal bronchial airway unremarkable. CONCLUSION: Heart failure. EKG? Weight gain? BNP?
[2020-02-12] MEDS ORDERED: Aspirin 81 MG Tab.Chew PO ONE (16:39)
== END 2020-02-12 18:03 ==
LOC: DL.ED 14:51
DX: R79.89 Other specified abnormal findings of blood chemistry (principal); K02.9 Dental caries, unspecified; K21.9 Gastro-esophageal reflux disease without esophagitis; F17.210 Nicotine dependence, cigarettes, uncomplicated; Z79.899 Other long term (current) drug therapy
CPT/HCPCS: 36415; 71046; 80053; 80305-QW; 80307; 81001; 82140; 82150; 83605; 83690; 83735; 83880; 84484; 85025; 85610; 87040; 87086; 93005; 99285-25; A9270-GY; U0002